=== PATIENT | male | born 1950 ===

== ENCOUNTER 2022-03-05 08:34 | Emergency (ER) | payer OTHER | END 2022-03-05 09:44 | disposition home or self-care (01) | LOC: EC 08:34 | DX: K42.9 Umbilical hernia without obstruction or gangrene (principal) | CPT/HCPCS: 99283 ==

== ENCOUNTER 2022-07-04 18:02 | Inpatient (IN) | payer MEDICARE ==
[2022-07-04 19:52] LABS: Basophils # (A) 0.1 k/uL (0-0.2); Basophils % (A) 0 %; Eosinophils # (A) 0.1 k/uL (0-0.7); Eosinophils % (A) 1 %; HCT 46.3 % (39.0-53.0); HGB 14.6 gm/dL (13.0-17.5); Lymphocytes # (A) 0.9 k/uL (1.0-4.8); Lymphocytes % (A) 8 %; MCH 31.1 pg (25.0-35.0); MCHC 31.6 g/dL (31.0-37.0); MCV 98.5 fL (80.0-100.0); Mean Platelet Volume 8.6; Monocytes # (A) 0.8 k/uL (0-1.0); Monocytes % (A) 7 %; Neutrophils # (A) 9.9 k/uL (1.3-7.7); Neutrophils % (A) 82 %; Platelet Count 161 k/uL (150-450); RDW 14.7 % (11.5-15.5)
[2022-07-04 20:13] LABS: ALT 21 U/L (4-49); AST 37 U/L (17-59); African American GFR (CKD) >90 (>60 ml/min/1.73 sqM); Albumin 2.9 g/dL (3.5-5.0); Alkaline Phosphatase 134 U/L (38-126); Anion Gap 11 mmol/L; Blood Urea Nitrogen 13 mg/dL (9-20); Carbon Dioxide 21 mmol/L (22-30); Chloride 99 mmol/L (98-107); Glucose 119 mg/dL (74-99); Non-African American GFR(CKD) >90 (>60 ml/min/1.73 sqM); Potassium 3.7 mmol/L (3.5-5.1); Sodium 131 mmol/L (137-145); Total Bilirubin 4.1 mg/dL (0.2-1.3); Total Protein 6.7 g/dL (6.3-8.2)
[2022-07-04] MEDS ORDERED: SODIUM CHLORIDE 0.9% 1,000 ML IV STA (23:52)
--- NOTE | 2022-07-04 23:55 | ED ---
Recheck HPI - General Chief Complaint: Extremity Problem,Nontraumatic Stated Complaint: liver Time Seen by Provider: 07/04/22 21:56 Source: patient, RN notes reviewed, old records reviewed Mode of arrival: wheelchair Limitations: no limitations - History of Present Illness Initial Comments: This is a 71-year-old male to the emergency department for evaluation. Patient is mildly poor strain secondary to difficulty hearing. With significant lower extremity swelling edema and weeping. Patient does have some significant liver disease. He has no shortness of breath but does complain of a diminished appetite as well as significant weakness, abdominal pain. MD Complaint: abnormal lab, other (Significant ascites) -: unknown Returns Today for: Called Because of Abnormal Lab/Test, persistent/worsening pain related to initial visit Symptoms Since Prior Visit: worsening swelling Context: planned re-check Associated Symptoms: abdominal pain Treatments Prior to Arrival: other (0) - Related Data Allergies Allergy/AdvReac Type Severity Reaction Status Date / Time No Known Allergies Allergy Verified 07/04/22 19:00 Review of Systems ROS Statement: Those systems with pertinent positive or pertinent negative responses have been documented in the HPI. ROS Other: All systems not noted in ROS Statement are negative. Past Medical History Past Medical History: Liver Disease Additional Past Medical History / Comment(s): liver failure, encephalitis History of Any Multi-Drug Resistant Organisms: None Reported Past Surgical History: Orthopedic Surgery Additional Past Surgical History / Comment(s): broke both legs when he was younger Past Psychological History: No Psychological Hx Reported Smoking Status: Current every day smoker Past Alcohol Use History: Heavy Past Drug Use History: Marijuana General Exam Limitations: no limitations General appearance: alert, in no apparent distress, lethargic Head exam: Present: atraumatic, normocephalic, normal inspection Eye exam: Present: normal appearance, PERRL, EOMI. Absent: scleral icterus, conjunctival injection, periorbital swelling ENT exam: Present: normal exam, mucous membranes moist Neck exam: Present: normal inspection. Absent: tenderness, meningismus, lymphadenopathy Respiratory exam: Present: normal lung sounds bilaterally. Absent: respiratory distress, wheezes, rales, rhonchi, stridor Cardiovascular Exam: Present: regular rate, normal rhythm, normal heart sounds. Absent: systolic murmur, diastolic murmur, rubs, gallop, clicks GI/Abdominal exam: Present: soft, normal bowel sounds. Absent: distended, tenderness, guarding, rebound, rigid Extremities exam: Present: full ROM, other (Significant bilateral lower extremity swelling). Absent: tenderness, pedal edema, joint swelling, calf tenderness Back exam: Present: normal inspection Neurological exam: Present: alert, oriented X3, CN II-XII intact Psychiatric exam: Present: normal affect, normal mood Skin exam: Present: warm, dry, intact, normal color. Absent: rash Course Vital Signs 07/04/22 18:56 Temperature 97.8 F Pulse Rate 120 H Respiratory 18 Rate Blood Pressure 109/77 O2 Sat by Pulse 99 Oximetry - Reevaluation(s) Reevaluation #1: 07/05/22 00:28 Medical record is reviewed Reevaluation #2: 07/05/22 00:28 Patient informed results and questions are answered Reevaluation #3: 07/05/22 00:28 Patient has no change here in the ER - Consultations Consultation #1: Spoke with [facility] we'll admit this patient Medical Decision Making - Medical Decision Making 71 male DF for evaluation. Patient has significant lower extremity edema secondary to new ascites and liver failure. Patient will need significant diuresis and paracentesis. 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 - Lab Data Result diagrams: 07/04/22 19:46 07/04/22 19:46 Lab Results 07/04/22 07/04/22 Range/Units 19:46 19:46 WBC 12.0 H (3.8-10.6) k/uL RBC 4.70 (4.30-5.90) m/uL Hgb 14.6 (13.0-17.5) gm/dL Hct 46.3 (39.0-53.0) % MCV 98.5 (80.0-100.0) fL MCH 31.1 (25.0-35.0) pg MCHC 31.6 (31.0-37.0) g/dL RDW 14.7 (11.5-15.5) % Plt Count 161 (150-450) k/uL MPV 8.6 Neutrophils % 82 % Lymphocytes % 8 % Monocytes % 7 % Eosinophils % 1 % Basophils % 0 % Neutrophils # 9.9 H (1.3-7.7) k/uL Lymphocytes # 0.9 L (1.0-4.8) k/uL Monocytes # 0.8 (0-1.0) k/uL Eosinophils # 0.1 (0-0.7) k/uL Basophils # 0.1 (0-0.2) k/uL Sodium 131 L (137-145) mmol/L Potassium 3.7 (3.5-5.1) mmol/L Chloride 99 (98-107) mmol/L Carbon Dioxide 21 L (22-30) mmol/L Anion Gap 11 mmol/L BUN 13 (9-20) mg/dL Creatinine 0.80 (0.66-1.25) mg/dL Est GFR (CKD-EPI)AfAm >90 (>60 ml/min/1.73 sqM) Est GFR (CKD-EPI)NonAf >90 (>60 ml/min/1.73 sqM) Glucose 119 H (74-99) mg/dL Calcium 9.0 (8.4-10.2) mg/dL Total Bilirubin 4.1 H (0.2-1.3) mg/dL AST 37 (17-59) U/L ALT 21 (4-49) U/L Alkaline Phosphatase 134 H (38-126) U/L Total Protein 6.7 (6.3-8.2) g/dL Albumin 2.9 L (3.5-5.0) g/dL Disposition Clinical Impression: Ascites of liver, Liver cirrhosis, Bilateral lower extremity edema Disposition: ADMITTED IP TO THIS HOSP Condition: Fair Is patient prescribed a controlled substance at d/c from ED?: No Referrals: None,Stated [Primary Care Provider] - 1-2 days Time of Disposition: 00:30
[2022-07-05] MEDS ORDERED: LORazepam 2 MG/ML INJ IV PRN ×3 (00:23)
[2022-07-05] MEDS ORDERED: THIAMINE 100 MG/ML 2 ML VIAL IM STA (00:23)
[2022-07-05 00:53] LABS: Magnesium 2.1 mg/dL (1.6-2.3); Phosphorus 3.3 mg/dL (2.5-4.5)
[2022-07-05 01:06] LABS: INR 1.4 (<1.2); Partial Thromboplastin Time 28.8 sec (22.0-30.0); Prothrombin Time 14.1 sec (9.0-12.0)
[2022-07-05] MEDS ORDERED: NALOXONE 0.4 MG/ML 1 ML VIAL IV PRN (02:12)
[2022-07-05] MEDS ORDERED: ONDANSETRON 4 MG/2 ML VIAL IVP PRN (02:12)
[2022-07-05] MEDS ORDERED: MORPHINE SULFATE 4 MG/ML SYRINGE IV PRN (02:12)
--- NOTE | 2022-07-05 05:51 | P.HPIM ---
History of Present Illness H&P Date: 07/05/22 Chief Complaint: Peripheral edema abdominal distention 71-year-old male with no known significant past medical history Patient is hard of hearing. However he reports that he has no medical concerns or complaints at this time and that his daughter for symptomatic come to the hospital for evaluation. Patient also came to the ED few days ago and his daughter where she reported that patient is having significant edema in his legs and swelling of his abdomen and wanted him to get checked at that time blood work done CT imaging of the abdomen showed massive ascites along with liver cirrhosis. Patient was advised to get admitted for further workup and tapping of his abdomen to help relieve his symptoms however he declined any care at that time and elected to be discha rged from the ED and to follow-up with Drs. agarwal. Seems like his daughter was concerned about the worsening edema of his legs and worsening abdominal distention probably there is a component of difficulty breathing. Daughter also reported some generalized fatigue and weakness and decreased appetite for which she brought him back to the hospital for evaluation Again patient has no complaints he denies any symptoms he denies any chest pain or trouble breathing denies any GI bleeding denies any IV drug abuse or any history of hepatitis denies any nausea vomiting denies any chest pain or trouble breathing denies any fevers or chills. Seems like patient has very poor insight of his overall clinical picture Blood work in the ED showed elevated bilirubin slightly elevated PT/INR, low a lbumin Review of Systems Unreliable patient denies everything Pertinent positives as noted in HPI. All other systems were reviewed and are negative Past Medical History Past Medical History: Liver Disease Additional Past Medical History / Comment(s): liver failure, encephalitis History of Any Multi-Drug Resistant Organisms: None Reported Past Surgical History: Orthopedic Surgery Additional Past Surgical History / Comment(s): broke both legs when he was younger Past Psychological History: No Psychological Hx Reported Smoking Status: Current every day smoker Past Alcohol Use History: Heavy Past Drug Use History: Marijuana - Past Family History Family Additional Family Medical History / Comment(s): Denies any heart disease or cancer in the family Medications and Allergies Allergies Allergy/AdvReac Type Severity Reaction Status Date / Time No Known Allergies Allergy Verified 07/04/22 19:00 Physical Exam Vitals: Vital Signs Temp Pulse Resp BP Pulse Ox 07/04/22 18:56 97.8 F 120 H 18 109/77 99 Intake and Output 07/04/22 07/04/22 07/05/22 14:59 22:59 06:59 Other: Weight 45.359 kg Constitutional: No acute distress, cachectic Eyes: Jaundice sclerae, moist conjunctiva, Pupils equal round reactive to light ENMT: NC/AT Oropharynx clear, no erythema, or exudates Neck: Supple, , no masses, or JVD No carotid bruits No thyromegaly Lungs: Clear to auscultation Clear to percussion Normal respiratory effort, no accessory muscle use Cardiovascular: Heart regular in rate and rhythm, No murmurs, gallops, or rubs +3 bilateral peripheral edema Abdominal: Distended abdomen tense to palpation no tenderness Nontender, no guarding, rebound or rigidity Abdomen moving with respiration Difficult to assess organs due to significant abdominal distention and tenderness to palpation Umbilical hernia nontender Skin: Normal temperature, tone, texture, turgor Extremities: No digital cyanosis No clubbing Pedal pulses unable to detect due to significant pedal edema capillary refill is immediate Radial pulses intact and symmetrical No calf tenderness Psychiatric: Alert and oriented to person, place Neuro Muscles Strength 4/5 in bilateral upper extremities 3/5 in bilateral lower extremities Sensation to light touch grossly present throughout Cranial nerves II-XII grossly intact Lymphatics: no palpable cervical or supraclavicular , or inguinal lymph nodes Results CBC & Chem 7: 07/04/22 19:46 07/04/22 19:46 Labs: Abnormal Lab Results - Last 24 Hours (Table) 07/04/22 07/04/22 07/05/22 Range/Units 19:46 19:46 00:14 WBC 12.0 H (3.8-10.6) k/uL Neutrophils # 9.9 H (1.3-7.7) k/uL Lymphocytes # 0.9 L (1.0-4.8) k/uL PT 14.1 H (9.0-12.0) sec INR 1.4 H (<1.2) Sodium 131 L (137-145) mmol/L Carbon Dioxide 21 L (22-30) mmol/L Glucose 119 H (74-99) mg/dL Total Bilirubin 4.1 H (0.2-1.3) mg/dL Alkaline Phosphatase 134 H (38-126) U/L Albumin 2.9 L (3.5-5.0) g/dL Assessment and Plan Assessment: Suspected advanced liver disease with liver cirrhosis, unknown underlying cause of this time Significant abdominal ascites GI consultation Check hepatitis panel Interventional radiology for paracentesis diagnostic and therapeutic Lasix IV twice a day Supportive care Denies any alcohol use or illicit drug use Hyponatremia Secondary to fluid retention from liver cirrhosis Monitor sodium Continue with Lasix IV twice a day DVT prophylaxis heparin subcu 3 times a day Full code
[2022-07-05] MEDS: HEPARIN SODIUM,PORCINE/PF 5,000 UNIT/0.5 ML SYRINGE SQ SCH ×2 (07:18→16:52)
[2022-07-05] MEDS: SODIUM CHLORIDE 0.9% 1,000 ML IV SCH (08:20)
[2022-07-05] MEDS: FUROSEMIDE 10 MG/ML 4 ML VIAL IV SCH ×2 (08:25→20:23)
[2022-07-05] MEDS ORDERED: SPIRONOLACTONE 25 MG TAB PO SCH (09:00)
--- NOTE | 2022-07-05 12:14 | P.CONS ---
History of Present Illness - Reason for Consult Consult date: 07/05/22 Cirrhosis of the liver Requesting physician: Nazario Rico - Chief Complaint Ascites, lower extremity edema - History of Present Illness This 71-year-old white male who is extremely hard of hearing that was brought in by his daughter to the emergency department for evaluation of lower extremity swelling and abdominal swelling. Apparently the patient was brought into the emergency department on 06/30/[address] of the abdomen and pelvis with contrast that showed massive abdominal ascites. Large umbilical hernia containing ascites fluid. Irregular small liver consistent with cirrhosis. Bilateral lower lobe pulmonary infiltrates and atelectasis more on the right. Small right pleural effusion. Apparently at that time the patient decided he did not want treatment and decided to leave without treatment according to the ER note from yesterday. Gastroenterology was consulted for cirrhosis of the liver, ascites. Patient states he has drank for many years 3-4 beers a day. Last drink was couple months ago according to the patient. He denies any previous knowledge of cirrhosis of the liver or underlying liver disease. States he is been swollen in the lower extremities as well as abdominal distention for the last 2-3 months. He states he does not have a family physician and does not follow with anyone on a regular basis. Denies any medi torrey history. Patient states he does have some shortness of breath, no chest pain. Abdominal discomfort due to distention. No previous paracentesis. Bilateral lower extremity edema with weeping legs but she states are uncomfortable. Current labs: WBC 12 hemoglobin 14 hematocrit 46 platelet count 161,000 INR 1.4 sodium 131 potassium 3.7 BUN 13 creatinine 0.8 total bilirubin 4.1 AST 37 ALT 27 alkaline phosphatase 134 ammonia less than 9 Review of Systems REVIEW OF SYSTEMS: CARDIOPULMONARY: No chest pain or shortness of breath. Bilateral lower extremity edema, weeping. Gastrointestinal: Abdominal distention, discomfort. Umbilical hernia. No nausea or vomiting. No hematemesis, coffee-ground emesis. No rectal bleeding, or melena. GENITOURINARY: No dysuria or hematuria. MUSCULOSKELETAL: Reports normal range of motion. SKIN: No rashes. No jaundice. ENDOCRINE: No chills, fevers. No excessive weight gain or loss. No polydipsia or polyuria. PSYCHIATRIC: Unremarkable. NEUROLOGY: No change in mental status. Denies dizziness, headache. ENT: Vision unremarkable. CONSTITUTIONAL: No recent weight loss. No fever, chills, night sweats. Past Medical History Past Medical History: Liver Disease Additional Past Medical History / Comment(s): liver failure, encephalitis History of Any Multi-Drug Resistant Organisms: None Reported Past Surgical History: Orthopedic Surgery Additional Past Surgical History / Comment(s): broke both legs when he was younger Past Psychological History: No Psychological Hx Reported Smoking Status: Current every day smoker Past Alcohol Use History: Heavy Past Drug Use History: Marijuana - Past Family History Family Additional Family Medical History / Comment(s): Denies any heart disease or cancer in the family Father Family Medical History: No Reported History Additional Family Medical History / Comment(s): Pt states father was healthy Mother Family Medical History: Dementia Medications and Allergies Home Medications Medication Instructions Recorded Confirmed Type No Known Home Medications 07/05/22 07/05/22 History Allergies Allergy/AdvReac Type Severity Reaction Status Date / Time No Known Allergies Allergy Verified 07/05/22 06:53 Physical Exam Vitals: Vital Signs Temp Pulse Resp BP Pulse Ox 07/05/22 06:57 89 16 109/68 95 07/05/22 04:25 94 17 116/74 96 07/04/22 18:56 97.8 F 120 H 18 109/77 99 Intake and Output 07/04/22 07/05/22 07/05/22 22:59 06:59 14:59 Other: Weight 45.359 kg General appearance: The patient is alert, oriented, appears in no acute distress. Extremely hard of hearing. HET: Head is normocephalic and atraumatic. Conjunctiva pink. Sclera anicteric. Neck: Supple without lymphadenopathy. Trachea midline. Heart: S1 S2. Regular rate and rhythm. Lungs: Clear to auscultation. Abdomen: Soft, diffuse tenderness, significant distention with ascites, umbilical hernia present, positive bowel sounds. No guarding or rigidity. Skin: No rashes. No jaundice. Extremities: Normal skin color and turgor. +2-3 bilateral lower extremity edema, with weeping. Neurological: No focal deficits. Alert and oriented x3. Results CBC & Chem 7: 07/04/22 19:46 07/04/22 19:46 Labs: Abnormal Lab Results - Last 24 Hours (Table) 07/04/22 07/04/2222 Range/Units 19:46 19:46 00:14 WBC 12.0 H (3.8-10.6) k/uL Neutrophils # 9.9 H (1.3-7.7) k/uL Lymphocytes # 0.9 L (1.0-4.8) k/uL PT 14.1 H (9.0-12.0) sec INR 1.4 H (<1.2) Sodium 131 L (137-145) mmol/L Carbon Dioxide 21 L (22-30) mmol/L Glucose 119 H (74-99) mg/dL Total Bilirubin 4.1 H (0.2-1.3) mg/dL Alkaline Phosphatase 134 H (38-126) U/L Albumin 2.9 L (3.5-5.0) g/dL CT scan - abdomen: report reviewed (06/30/[address] of the abdomen and pelvis with contrast that showed massive abdominal ascites. Large umbilical hernia containing ascites fluid. Irregular small liver consistent with cirrhosis. Bilateral lower lobe pulmonary infiltrates and atelectasis more on the right. Small right pleur) Assessment and Plan (1) Decompensation of cirrhosis of liver Narrative/Plan: 71-year-old male who doesn't follow PCP who presented to emergency department couple days ago and left without recommended treatment. At that time he had a CT of the abdomen and pelvis that showed massive amount of ascites. According to the emergency room notes from yesterday patient was recommended to have paracentesis however he declined left. Yesterday his daughter brought him back, with continued lower extremity swelling and abdominal swelling and distention. Patient has a history of long-term alcohol use and drinks 3-4 beers a day. Patient states he quit drinking 2-3 months ago. He does not follow with the PCP and denies any previous medical history. Denies any previous knowledge of liver disease or cirrhosis of the liver. Mild score calculated at 21 with a 19.6% mortality rate in the next 3 months. Recommend paracentesis therapeutic and diagnostic. Continue diuretics. Current Visit: Yes Status: Acute Code(s): K72.90 - HEPATIC FAILURE, UNSPECIFIED WITHOUT COMA; K74.60 - UNSPECIFIED CIRRHOSIS OF LIVER SNOMED Cod e(s): 342119253 (2) Ascites of liver Current Visit: Yes Status: Acute Code(s): R18.8 - OTHER ASCITES SNOMED Code(s): 488314753 (3) Bilateral lower extremity edema Current Visit: Yes Status: Acute Code(s): R60.0 - LOCALIZED EDEMA SNOMED Code(s): 467018001 (4) Umbilical hernia Current Visit: No Status: Acute Code(s): K42.9 - UMBILICAL HERNIA WITHOUT OBSTRUCTION OR GANGRENE SNOMED Code(s): 721114331 Plan: 1. Continue symptomatic and supportive care 2. Low-sodium diet 3. Continue IV Lasix, increase Aldactone to 100 mg daily 4. Agree with paracentesis with fluid studies and cytology 5. Recommend elevation lower extremities, wrapped with Hector wrap 6. Patient does have a 19.6 mortality rate in the next 3 months according to his meld score, primary medicine team has consulted with palliative care. Thank you for this consultation, we will continue to follow. Dr. Jose C Villegas I agree with the dictator's note, documented as a scribe by Tamraa Ng.
[2022-07-05 12:29] LABS: Hepatitis A Antibody IgM Nonreactive (Nonreactive); Hepatitis B Core IgM Nonreactive (Nonreactive); Hepatitis B Surface Antigen Nonreactive (Nonreactive); Hepatitis C IgG Antibody Reactive (Nonreactive)
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
[2022-07-05] MEDS ORDERED: ACETAMINOPHEN TAB 325 MG TAB PO PRN (14:17)
[2022-07-05] MEDS ORDERED: KETOROLAC 15 MG/ML 1 ML VIAL IVP PRN (14:18)
[2022-07-05] MEDS: ALBUMIN HUMAN 25% 50 ML in EMPTY BAG 1 BAG IVPB SCH ×6 (16:43→18:29)
[2022-07-05] MEDS: THIAMINE 100 MG TAB PO SCH (17:18)
[2022-07-05 23:35] LABS: Appearance,BF Clear
[2022-07-06] MEDS: HEPARIN SODIUM,PORCINE/PF 5,000 UNIT/0.5 ML SYRINGE SQ SCH ×3 (00:04→15:31)
[2022-07-06] MEDS: SODIUM CHLORIDE 0.9% 1,000 ML IV SCH (00:04)
[2022-07-06 00:41] LABS: T. Protein, Body Fluid Source Ascites; Total Protein, Body Fluid 629 mg/dL
[2022-07-06 00:56] LABS: Albumin, Fluid Source Ascites
--- NOTE | 2022-07-06 07:48 | US ---
EXAMINATION TYPE: US paracentesis abd w/image DATE OF EXAM: 07/05/2022 COMPARISON: NONE HISTORY: Ascites. PROCEDURE: Maximal barrier technique was utilized. The skin overlying a suitable pocket of fluid was localized with ultrasound and the overlying skin was prepped and draped. Ultrasound was utilized with sterile technique. Lidocaine was used for local anesthesia and a skin bernard made with a scalpel. Catheter was advanced under direct ultrasound guidance into a suitable pocket of fluid and approximately 12.3 lite rs of ascites fluid were removed. Catheter was withdrawn and hemostasis achieved. There is no immed iate complication; the patient is discharged in stable condition. IMPRESSION: STATUS POST ULTRASOUND GUIDED PARACENTESIS FOR PALLIATION OF ASCITES. THIS PROCEDURE WA S PERFORMED BY THE UNDERSIGNED.
[2022-07-06] MEDS: THIAMINE 100 MG TAB PO SCH ×2 (09:19→17:09)
[2022-07-06] MEDS: FUROSEMIDE 10 MG/ML 4 ML VIAL IV SCH ×2 (09:20→22:17)
[2022-07-06 09:28] LABS: ALT 15 U/L (4-49); AST 41 U/L (17-59); African American GFR (CKD) >90 (>60 ml/min/1.73 sqM); Albumin 2.9 g/dL (3.5-5.0); Albumin/Globulin Ratio 1.1; Alkaline Phosphatase 131 U/L (38-126); Anion Gap 11 mmol/L; Bilirubin,Unconjugated 1.6 mg/dL (0.0-1.1); Blood Urea Nitrogen 21 mg/dL (9-20); Calcium 8.7 mg/dL (8.4-10.2); Carbon Dioxide 21 mmol/L (22-30); Chloride 101 mmol/L (98-107); Globulin 2.7 g/dL; Glucose 114 mg/dL (74-99); Magnesium 1.9 mg/dL (1.6-2.3); Non-African American GFR(CKD) >90 (>60 ml/min/1.73 sqM); Phosphorus 2.5 mg/dL (2.5-4.5); Sodium 133 mmol/L (137-145); Total Bilirubin 2.6 mg/dL (0.2-1.3); Total Protein 5.6 g/dL (6.3-8.2)
[2022-07-06 09:41] LABS: Potassium 3.4 mmol/L (3.5-5.1)
[2022-07-06 10:16] LABS: Basophils % (A) 0 %; Eosinophils % (A) 0 %; HCT 42.1 % (39.0-53.0); HGB 13.8 gm/dL (13.0-17.5); Lymphocytes # (A) 0.6 k/uL (1.0-4.8); Lymphocytes % (A) 6 %; MCH 32.5 pg (25.0-35.0); MCHC 32.7 g/dL (31.0-37.0); MCV 99.3 fL (80.0-100.0); Macrocytosis Slight; Mean Platelet Volume 9.4; Monocytes # (A) 0.6 k/uL (0-1.0); Monocytes % (A) 6 %; Neutrophils # (A) 9.2 k/uL (1.3-7.7); Neutrophils % (A) 87 %; Platelet Count 105 k/uL (150-450); RBC 4.24 m/uL (4.30-5.90); WBC 10.5 k/uL (3.8-10.6)
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
[2022-07-06] MEDS: SPIRONOLACTONE 25 MG TAB PO SCH (13:39)
--- NOTE | 2022-07-06 13:40 | P.PN ---
Subjective Progress Note Date: 07/06/22 Patient doing well following his paracentesis. Workup continues for liver cirrhosis, hepatitis C IgG was positive, quantitative RNA for hepatitis C is pending, qualitative RNA is positive. Patient is otherwise doing well, has no complaints at this time. Gen: awake, alert, cachectic HEENT: normocephalic, atraumatic, good hearing acuity, moist mucous membranes Resp: good air exchange, breathing comfortably with no accessory muscle use CVS: good distal perfusion x 4, GI: soft, distended, positive ascites : no SPT, no CVAT, mendoza catheter not present MSK: no pitting edema, no clubbing Neuro: non-focal, moving all extremities Psych: cooperative, euthymic mood Assessment/plan: Decompensated Liver Cirrhosis Abdominal Ascites Hepatitis C -GI consultation -Check hepatitis panel -Interventional radiology for paracentesis diagnostic and therapeutic -Lasix IV twice a day -Supportive care -Denies any alcohol use or illicit drug use -Add aldactone -MELD score 21 = 19.6% 3 month mortality Hyponatremia Monitor sodium Continue with Lasix IV twice a day, added aldactone DVT prophylaxis heparin subcu 3 times a day Full code Objective - Vital Signs Vital signs: Vital Signs Temp 97.7 F 07/06/22 13:16 Pulse 107 H 07/06/22 13:16 Resp 18 07/06/22 13:16 BP 94/60 07/06/22 13:16 Pulse Ox 92 L 07/06/22 13:16 FiO2 Intake & Output 07/05/22 07/06/22 07/06/22 18:59 06:59 18:59 Intake Total 300 Output Total 58134 300 Balance -41415 -300 Weight 66.5 kg Intake: Intake, IV Titration 300 Amount Albumin Human 25% 50 ml 100 In Empty Bag 1 bag @ 200 mls/hr IVPB Q15M CT Rx#: [id number] Albumin Human 25% 50 ml 200 In Empty Bag 1 bag @ 200 mls/hr IVPB Q15M CT Rx#: [id number] Output: Urine 300 Other [id number] Other: Voiding Method Urinal Urinal # Bowel Movements 1 - Labs CBC & Chem 7: 07/06/22 08:54 07/06/22 08:54 Labs: Abnormal Lab Results - Last 24 Hours (Table) 07/05/22 07/06/22 07/06/22 Range/Units 18:17 08:54 08:54 RBC 4.24 L (4.30-5.90) m/uL Plt Count 105 L (150-450) k/uL Neutrophils # 9.2 H (1.3-7.7) k/uL Lymphocytes # 0.6 L (1.0-4.8) k/uL Sodium 133 L (137-145) mmol/L Potassium 3.4 L (3.5-5.1) mmol/L Carbon Dioxide 21 L (22-30) mmol/L BUN 21 H (9-20) mg/dL Glucose 114 H (74-99) mg/dL Total Bilirubin 2.6 H (0.2-1.3) mg/dL Unconjugated Bilirubin 1.6 H (0.0-1.1) mg/dL Alkaline Phosphatase 131 H (38-126) U/L Total Protein 5.6 L (6.3-8.2) g/dL Albumin 2.9 L (3.5-5.0) g/dL HCV RNA Qual (PCR) DETECTED A (Not detected) Microbiology - Last 24 Hours (Table) 07/05/22 13:50 Anaerobic Culture - Preliminary Ascites Fluid 07/05/22 13:50 Body Fluid Culture - Preliminary Ascites Fluid
[2022-07-06 13:52] VITALS: BMI 23.6
--- NOTE | 2022-07-06 14:32 | P.PN ---
Subjective Progress Note Date: 07/06/22 Principal diagnosis: Cirrhosis of the liver This 71-year-old white male who is extremely hard of hearing that was brought in by his daughter to the emergency department for evaluation of lower extremity swelling and abdominal swelling. Apparently the patient was brought into the emergency department on 06/30/[address] of the abdomen and pelvis with contrast that showed massive abdominal ascites. Large umbilical hernia containing ascites fluid. Irregular small liver consistent with cirrhosis. Bilateral lower lobe pulmonary infiltrates and atelectasis more on the right. Small right pleural effusion. Apparently at that time the patient decided he did not want treatment and decided to leave without treatment according to the ER note from yesterday. Gastroenterology was consulted for cirrhosis of the liver, ascites. Patient states he has drank for many years 3-4 beers a day. Last drink was couple months ago according to the patient. He denies any prev ious knowledge of cirrhosis of the liver or underlying liver disease. States he is been swollen in the lower extremities as well as abdominal distention for the last 2-3 months. He states he does not have a family physician and does not follow with anyone on a regular basis. Denies any medical history. Patient states he does have some shortness of breath, no chest pain. Abdominal discomfort due to distention. No previous paracentesis. Bilateral lower extremity edema with weeping legs but she states are uncomfortable. 07/06/2022: Patient seen and examined is a follow-up for alcoholic cirrhosis of the liver, decompensated with ascites. Patient with a meld score of 21 with a 19.6% mortality rate. 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 The family wishes to take the patient home for palliative care, and we'll discuss further hospice intervention as patient's disease regresses. They have made patient a no code. This morning he underwent paracentesis with pulp 0.3 L removed. He states that abdominal distention and discomfort has improved. Patient acute hepatitis panel did come back reactive for hepatitis C antibody. WBC 10.5 hemoglobin 13.8, hematocrit 42 platelet count 105,000 sodium 133 potassium 3.4 total bilirubin 2.6 AST 41 ALT 15 alkaline phosphatase 131 Objective - Vital Signs Vital signs: Vital Signs Temp 97.6 F 07/05/22 18:55 Pulse 97 07/06/22 10:33 Resp 18 07/05/22 18:55 BP 103/73 07/06/22 08:06 Pulse Ox 100 07/06/22 10:33 FiO2 Intake & Output 07/05/22 07/06/22 07/06/22 18:59 06:59 18:59 Intake Total 300 Output Total 75051 300 Balance -20452 -300 Weight 66.5 kg Intake: Intake, IV Titration 300 Amount Albumin Human 25% 50 ml 100 In Empty Bag 1 bag @ 200 mls/hr IVPB Q15M CT Rx#: [id number] Albumin Human 25% 50 ml 200 In Empty Bag 1 bag @ 200 mls/hr IVPB Q15M CT Rx#: [id number] Output: Urine 300 Other 52901 Other: Voiding Method Urinal # Bowel Movements 1 - Exam General appearance: The patient is alert, oriented, appears in no acute distress. Patient is extremely hard of hearing. HET: Head is normocephalic and atraumatic. Conjunctiva pink. Sclera anicteric. Neck: Supple without lymphadenopathy. Abdomen: Soft, nontender, nondistended, umbilical hernia improved, easily reducible. Extremities: Normal skin color and turgor. +2 bilateral lower extremity edema. Skin: No rashes, no jaundice Neurological: No focal deficits. Alert and oriented x2. - Labs CBC & Chem 7: 07/06/22 08:54 07/06/22 08:54 Labs: Abnormal Lab Results - Last 24 Hours (Table) 07/05/22 07/06/22 07/06/22 Range/Units 07:47 08:54 08:54 RBC 4.24 L (4.30-5.90) m/uL Plt Count 105 L (150-450) k/uL Neutrophils # 9.2 H (1.3-7.7) k/uL Lymphocytes # 0.6 L (1.0-4.8) k/uL Sodium 133 L (137-145) mmol/L Potassium 3.4 L (3.5-5.1) mmol/L Carbon Dioxide 21 L (22-30) mmol/L BUN 21 H (9-20) mg/dL Glucose 114 H (74-99) mg/dL Total Bilirubin 2.6 H (0.2-1.3) mg/dL Unconjugated Bilirubin 1.6 H (0.0-1.1) mg/dL Alkaline Phosphatase 131 H (38-126) U/L Total Protein 5.6 L (6.3-8.2) g/dL Albumin 2.9 L (3.5-5.0) g/dL Hep C IgG Ab Reactive A (Nonreactive) Microbiology - Last 24 Hours (Table) 07/05/22 13:50 Anaerobic Culture - Preliminary Ascites Fluid 07/05/22 13:50 Body Fluid Culture - Preliminary Ascites Fluid Assessment and Plan (1) Decompensation of cirrhosis of liver Narrative/Plan: 71-year-old male who doesn't follow PCP who presented to emergency department couple days ago and left without recommended treatment. At that time he had a CT of the abdomen and pelvis that showed massive amount of ascites. According to the emergency room notes from yesterday patient was recommended to have paracentesis however he declined left. Yesterday his daughter brought him back, with continued lower extremity swelling and abdominal swelling and distention. Patient has a history of long-term alcohol use and drinks 3-4 beers a day. Patient states he quit drinking 2-3 months ago. He does not follow with the PCP and denies any previous medical history. Denies any previous knowledge of liver disease or cirrhosis of the liver. Mild score calculated at 21 with a 19.6% mortality rate in the next 3 months. Recommend paracentesis therapeutic and diagnostic. Continue diuretics. Patient's acute hepatitis panel came back reactive for hepatitis C antibody. Qualitative and genotype ordered. However patient at this time is deciding to g o with palliative care and possible hospice care outpatient. Otherwise patient to follow-up out patient with Dr. Villegas for hepatitis treatment. Current Visit: Yes Status: Acute Code(s): K72.90 - HEPATIC FAILURE, UNSPECIF IED WITHOUT COMA; K74.60 - UNSPECIFIED CIRRHOSIS OF LIVER SNOMED Code(s): 778802168 (2) Ascites of liver Narrative/Plan: The patient underwent paracentesis with 12.3 L removed. Patient was given albumin. Fluid studies consistent with underlying liver disease Current Visit: Yes Status: Acute Code(s): R18.8 - OTHER ASCITES SNOMED Cod e(s): 441553157 (3) Bilateral lower extremity edema Current Visit: Yes Status: Acute Code(s): R60.0 - LOCALIZED EDEMA SNOMED Code(s): 197791233 (4) Umbilical hernia Current Visit: No Status: Acute Code(s): K42.9 - UMBILICAL HERNIA WITHOUT OBSTRUCTION OR GANGRENE SNOMED Code(s): 724068023 Plan: 1. Continue symptomatic and supportive care 2. Low-sodium diet 3. Continue IV Lasix, Aldactone to 100 mg daily 4. Replace potassium 5. Recommend elevation lower extremities, wrapped with Hector wrap 6. Patient does have a 19.6 mortality rate in the next 3 months according to his meld score, primary medicine team has consulted with palliative care. Patient sister Arlette called and discussed patient's condition including plan of care. Discussed with her recommendation follow-up with gastroenterology to adrián levine outpatient therapeutic paracentesis. Also discussed with patient's sister hepatitis C status and possible treatment. She does believe her brother would not want treatment but this will be discussed further as an outpatient. Thank you for allowing us to participate in the care of the patient, the GI service will sign off, gastroenterology will not be available at the hospital this weekend and through next week. If further evaluation by gastroenterology is required the patient will need transfer as per the primary team's discretion. Dr. Jose C Villegas I agree with the dictator's note, documented as a scribe by Tamara Ng.
[2022-07-06 19:29] VITALS: RESP 16
[2022-07-06] MEDS ORDERED: SODIUM CHLORIDE 0.9% 500 ML 250 ML IV ONE (20:55)
[2022-07-06] MEDS ORDERED: DIGOXIN 250 MCG/ML 2 ML AMP IVP ONE (22:09)
[2022-07-07] MEDS: HEPARIN SODIUM,PORCINE/PF 5,000 UNIT/0.5 ML SYRINGE SQ SCH ×2 (01:03→08:17)
[2022-07-07] MEDS ORDERED: SODIUM CHLORIDE 0.9% 500 ML 250 ML IV ONE (01:53)
[2022-07-07] MEDS ORDERED: DILTIAZEM 5 MG/ML 5 ML VIAL IVP STA (01:53)
[2022-07-07] MEDS: SODIUM CHLORIDE 0.9% 1,000 ML IV SCH (04:21)
[2022-07-07 04:30] VITALS: BP 93/65
[2022-07-07] MEDS ORDERED: DIGOXIN 250 MCG/ML 2 ML AMP IVP ONE (04:30)
[2022-07-07 04:40] VITALS: TEMP 97.4
[2022-07-07] MEDS: THIAMINE 100 MG TAB PO SCH (08:16)
[2022-07-07] MEDS: SPIRONOLACTONE 25 MG TAB PO SCH (08:17)
[2022-07-07] MEDS: FUROSEMIDE 10 MG/ML 4 ML VIAL IV SCH (08:43)
[2022-07-07] MEDS ORDERED: DILTIAZEM CD 180 MG CAP.ER.24H PO SCH (09:00)
[2022-07-07 10:26] VITALS: PULSE 89
--- NOTE | 2022-07-07 17:00 | P.DS ---
Providers Date of admission: 07/05/22 02:12 Expected date of discharge: 07/07/22 Attending physician: Pratik Rodriguez MD Consults: 07/05/22 02:12 Consult Physician Routine Consulting Provider: Becky Villegas Consult Reason/Comments: cirrhosis Do you want consulting provider notified?: Yes 07/05/22 08:37 Consult to Palliative Care Routine Consulting Provider: Hollie Barrera Consult Reason/Comments: End stage liver disease Do you want consulting provider notified?: Yes Primary care physician: Stated None Hospital Course: Decompensated Liver Cirrhosis Abdominal Ascites Hepatitis C Hyponatremia Paroxysmal atrial fibrillation with RVR 71-year-old man with end-stage liver disease presented with decompensated liver cirrhosis. He had tense abdominal ascites as well as lower extremity edema with an unknown etiology. Patient was admitted to the hospital for paracentesis as well as workup of liver failure. He was seen by palliative care given his severe end-stage liver disease with a meld score of 21 portending a 19.6% chance of mortality at 3 months. He has family were amenable to receiving outpatient palliative care services. Regarding his liver failure, he had a paracentesis which removed 12.1 L of fluid with S AAG greater than 1.1, total protein less than 2 consistent with cirrhotic portal hypertension as a cause of his ascites, low white blood cell count with no suspicion of spontaneous bacterial peritonitis. Patient's hepatitis serologies returned positive for hepatitis C IgG and qualitative RNA was positive with quantitative RNA pending. Patient also went into atrial fibrillation with rapid ventricular response which was controlled with diltiazem. Patient was also discharged home with instructions to follow-up with infectious disease, primary care, hepatology regarding his issues. He will also be seen by palliative care. His new medications include Lasix, spironolactone, Apixiban, diltiazem. I spent 35 minutes coordinating this complex discharge, discharge date 07/07 Gen: awake, alert, cachectic HEENT: normocephalic, atraumatic, good hearing acuity, moist mucous membranes Resp: good air exchange, breathing comfortably with no accessory muscle use CVS: good distal perfusion x 4, GI: soft, distended, positive ascites : no SPT, no CVAT, mendoza catheter not present MSK: no pitting edema, no clubbing Neuro: non-focal, moving all extremities Psych: cooperative, euthymic mood Patient Condition at Discharge: Fair Plan - Discharge Summary Discharge Rx Participant: No New Discharge Prescriptions: New Spironolactone [Aldactone] 100 mg PO DAILY #120 tab Diltiazem Cd [Cardizem CD] 180 mg PO DAILY #30 cap Apixaban [Eliquis] 5 mg PO BID #60 tab Furosemide [Lasix] 40 mg PO BID #60 tablet Thiamine [Vitamin B-1] 100 mg PO BID-W/MEALS #60 tab Discharge Medication List Apixaban [Eliquis] 5 mg PO BID #60 tab 07/07/22 [Rx] Diltiazem Cd [Cardizem CD] 180 mg PO DAILY #30 cap 07/07/22 [Rx] Furosemide [Lasix] 40 mg PO BID #60 tablet 07/07/22 [Rx] Spironolactone [Aldactone] 100 mg PO DAILY #120 tab 07/07/22 [Rx] Thiamine [Vitamin B-1] 100 mg PO BID-W/MEALS #60 tab 07/07/22 [Rx] Follow up Appointment(s)/Referral(s): Becky Villegas MD [STAFF PHYSICIAN] - 1 Week (offices closed for the weekend, please call Saturday07/09/22 to schedule appointment.) [facility], [NON-STAFF] - 1 Week None,Stated [Primary Care Provider] - 1-2 days (PLEASE CALL YOUR PRIMARY CARE DOCTOR. offices closed for the weekend, please call Saturday07/09/22 to schedule appointment.) Ashley Cole MD [STAFF PHYSICIAN] - 1 Week (Hepatitis C infection. offices closed for the , please call Saturday07/09/22 to schedule appointment.) Patient Instructions/Handouts: A-fib (Atrial Fibrillation) (DC), Cirrhosis (DC), Hepatitis C (DC), Ascites (DC) Discharge Disposition: HOME WITH HOME HEALTH SERVICES
--- NOTE | 2022-07-10 12:49 | CDI ---
Documentation Clarification Form Date: 07/10/22 From: Lara Shipman Admit Date: 07/05/2022 02:12:00 AM Patient Name: Solomon Garcia Visit Number: [id number] Discharge Date: 07/07/2022 12:15:00 PM ATTENTION: The Clinical Documentation Specialists (CDI) and [facility] Coding Staff appreciate your assistance in clarifying documentation. Please respond to the clarification below the line at the bottom and electronically sign. The CDI & [facility] Coding staff will review the response and follow-up if needed. Please note: Queries are made part of the Legal Health Record. If you have any questions, please contact the author of this message via ITS. Dr. Foreign Brar, Malnutrition is documented in your consult and 07/06 PN. Additional clarification regarding the severity of malnutrition is requested. History/Risk Factors: alcoholic cirrhosis of liver with ascites, hyponatremia, portal hypertension, cachexia, chronic hepatic failure, dementia, viral hepatitis C without coma, PAF Clinical Indicators: Decreased appetite "feels full all the time", no recent weight loss, "+protein torrey malnutrition". Total Protein: 5.6 Albumin: 2.9 Current BMI: 23.1 07/06 Assessment: Intake-fair, consumed 25-50%, drank supplement 100% yesterday, no wounds. Decreased appetite with ascites, end-stage liver disease. Ensure Compact BID; Magic Cup 1X daily. Please clarify the type of malnutrition, if known: [ ] Mild Protein-Calorie Malnutrition [ X ] Moderate Protein-Calorie Malnutrition [ ] Severe Protein-Calorie Malnutrition [ ] Malnutrition, unspecified [ ] Other condition, please specify [ ] Unable to Determine MTDD
[2022-07-13 07:34] LABS: HCV Qualitative Result DETECTED (Not detected)
== END 2022-07-07 12:15 | disposition home health service (06) | DRG 433 ==
LOC: EC 18:02 → 5NMEDONC 07-05 02:12
PROVIDERS: ADMIT Internal Medicine; ATTEND Internal Medicine
PROC: 0W9G3ZX Drainage of Peritoneal Cavity, Percutaneous Approach, Diagnostic (ICD-10-PCS; principal; 2022-07-05)
DX: K70.31 Alcoholic cirrhosis of liver with ascites (principal); E44.0 Moderate protein-calorie malnutrition; E87.1 Hypo-osmolality and hyponatremia; K76.6 Portal hypertension; R64 Cachexia; J98.11 Atelectasis; K72.10 Chronic hepatic failure without coma; F03.90 Unspecified dementia, unspecified severity, without behavioral disturbance, psychotic disturbance, mood disturbance, and anxiety; B19.20 Unspecified viral hepatitis C without hepatic coma; I48.0 Paroxysmal atrial fibrillation; Z66 Do not resuscitate; Z51.5 Encounter for palliative care; Z28.310 Unvaccinated for COVID-19; Z68.23 Body mass index [BMI] 23.0-23.9, adult; H91.90 Unspecified hearing loss, unspecified ear; K42.9 Umbilical hernia without obstruction or gangrene; R13.10 Dysphagia, unspecified; R79.1 Abnormal coagulation profile; F17.200 Nicotine dependence, unspecified, uncomplicated; Z86.61 Personal history of infections of the central nervous system
CPT/HCPCS: 36415; 49083; 80053; 80074; 82042; 82140; 82248; 83735; 84100; 84157; 85025; 85610; 85730; 87070; 87075; 87205; 87521; 87522; 87902; 89050; 93005; 94760; 96360; 96361; 99285

== ENCOUNTER 2022-07-15 11:08 | Inpatient (IN) | payer MEDICARE ==
[2022-07-15] MEDS ORDERED: SODIUM CHLORIDE 0.9% 500 ML 500 ML IV STA ×2 (11:23→15:21)
--- NOTE | 2022-07-15 11:58 | XR ---
EXAMINATION TYPE: XR chest 1V portable DATE OF EXAM: 07/15/2022 11:51 AM COMPARISON: None TECHNIQUE: XR chest 1V portable Frontal view of the chest. CLINICAL INDICATION:Male, 71 years old with history of ams; FINDINGS: Lungs/Pleura: No pneumothorax or pleural effusion. Patchy prominent perihilar opacities. Low lung vol umes with elevated right hemidiaphragm. Heart/mediastinum: Cardiomediastinal silhouette is unremarkable. Atherosclerotic calcifications are seen in the aorta. Musculoskeletal: No acute osseous pathology. IMPRESSION: Low lung volumes with patchy prominent perihilar opacities which likely related to level of inspirati on.
--- NOTE | 2022-07-15 12:05 | ED ---
General Adult HPI - General Chief complaint: Altered Mental Status Stated complaint: Weakness Time Seen by Provider: 07/15/22 11:22 Source: EMS Mode of arrival: EMS Limitations: altered mental status - History of Present Illness Initial comments: Dictation was produced using [employer] dictation software. please excuse any grammatical, word or spelling errors. Chief Complaint: 71-year-old male presents emergency department for weakness and total body edema History of Present Illness: 71-year-old male with history of liver failure, en cephalitis and hepatitis C treated presents with sister for worsening weakness, generalized fatigue and pitting edema to the abdomen extremities. Patient is a poor historian unable to 5 history of present illness. Sister the bedside provides history of present illness. Patient was just hospitalized approximately one week ago for decompensated liver cirrhosis. He was evaluated by GI. Patient has also had paracentesis. The ROS documented in this emergency department record has been reviewed and confirmed by me. Those systems with pertinent positive or negative responses have been documented in the HPI. All other systems are other negative and/or noncontributory. PHYSICAL EXAM: General Impression: Alert and oriented x3/4, not in acute distress HEENT: Normocephalic atraumatic, extra-ocular movements intact, pupils equal and reactive to light bilaterally, dry mucous members, lethargic Cardiovascular: Heart regular rate and rhythm Chest: Able to complete full sentences, no retractions, no tachypnea Abdomen: abdomen soft, tense abdomen with positive fluid wave, non-distended, no organomegaly Musculoskeletal: Pulses present and equal in all extremities, no peripheral edema Motor: no focal deficits noted Neurological: CN II-XII grossly intact, no focal motor or sensory deficits noted Skin: Intact with no visualized rashes Psych: Normal affect and mood ED course: 71-year-old male with past medical history of liver disease presents to the emergency department for worsening lethargy and extremity swelling. Vital Signs upon arrival are within acceptable limits. Patient is also severe frail appearing at the bedside. He's got evidence of ascites and cirrhosis however is not in any sort of significant distress. Patient is a lactic acidosis in 0.5. Coag panel is unremarkable. Metabolic panel shows sodium 125, lactic acidosis of 4.3, rest of vitals within acceptable limits. Computed tomography scan of brain is unremarkable. Chest x-ray shows no acute processes. Given patient's frail nature and grave disability he'll be admitted for medical monitoring. There is suspicion of acute infectious process. Patient is started on broad spectrum metabolic panel. Patient mid to a [facility] hospitalist group. EKG interpretation: Ventricular rate 47, sinus tachycardia,. Interval 1:30, care is 86, QTC 349. No CT prolongation, no QTC prolongation, no ST or T-wave changes noted. EKG compared to 07/04/2022 showing no changes. Overall, this EKG is unremarkable - Related Data Previous Rx's Medication Instructions Recorded Diltiazem Cd [Cardizem CD] 180 mg PO DAILY #30 cap 07/07/22 Furosemide [Lasix] 40 mg PO BID #60 tablet 07/07/22 Spironolactone [Aldactone] 100 mg PO DAILY #120 tab 07/07/22 Thiamine [Vitamin B-1] 100 mg PO BID-W/MEALS #60 tab 07/07/22 Allergies Allergy/AdvReac Type Severity Reaction Status Date / Time No Known Allergies Allergy Verified 07/15/22 12:29 Review of Systems ROS Statement: Those systems with pertinent positive or pertinent negative responses have been documented in the HPI. ROS Other: All systems not noted in ROS Statement are negative. Past Medical History Past Medical History: Liver Disease Additional Past Medical History / Comment(s): liver failure ETOH, encephalitis, Hepatitis C History of Any Multi-Drug Resistant Organisms: None Reported Past Surgical History: Orthopedic Surgery Additional Past Surgical History / Comment(s): broke both legs when he was younger Past Anesthesia/Blood Transfusion Reactions: No Reported Reaction Past Psychological History: No Psychological Hx Reported Smoking Status: Current every day smoker Past Alcohol Use History: Heavy Past Drug Use History: Marijuana - Past Family History Father Family Medical History: No Reported History Additional Family Medical History / Comment(s): Pt states father was healthy Mother Family Medical History: Dementia Family Additional Family Medical History / Comment(s): Denies any heart disease or cancer in the family General Exam Limitations: altered mental status Course Vital Signs 07/15/22 07/15/22 11:10 12:39 Temperature 97.5 F L Pulse Rate 65 99 Respiratory 18 16 Rate Blood Pressure 92/73 95/77 O2 Sat by Pulse 97 97 Oximetry Medical Decision Making - Lab Data Result diagrams: 07/15/22 11:40 07/15/22 11:40 Lab Results 07/15/22 07/15/22 07/15/22 Range/Units 11:40 11:40 11:40 WBC 16.5 H (3.8-10.6) k/uL RBC 4.54 (4.30-5.90) m/uL Hgb 14.8 (13.0-17.5) gm/dL Hct 44.6 (39.0-53.0) % MCV 98.3 (80.0-100.0) fL MCH 32.5 (25.0-35.0) pg MCHC 33.1 (31.0-37.0) g/dL RDW 15.0 (11.5-15.5) % Plt Count 129 L (150-450) k/uL MPV 9.6 Neutrophils % 90 % Lymphocytes % 4 % Monocytes % 5 % Eosinophils % 0 % Basophils % 0 % Neutrophils # 14.8 H (1.3-7.7) k/uL Lymphocytes # 0.6 L (1.0-4.8) k/uL Monocytes # 0.7 (0-1.0) k/uL Eosinophils # 0.1 (0-0.7) k/uL Basophils # 0.0 (0-0.2) k/uL PT 13.8 H (9.0-12.0) sec INR 1.3 H (<1.2) APTT 27.7 (22.0-30.0) sec Sodium 125 L (137-145) mmol/L Potassium 3.9 (3.5-5.1) mmol/L Chloride 91 L (98-107) mmol/L Carbon Dioxide 21 L (22-30) mmol/L Anion Gap 13 mmol/L BUN 42 H (9-20) mg/dL Creatinine 1.36 H (0.66-1.25) mg/dL Est GFR (CKD-EPI)AfAm 60 (>60 ml/min/1.73 sqM) Est GFR (CKD-EPI)NonAf 52 (>60 ml/min/1.73 sqM) Glucose 135 H (74-99) mg/dL Plasma Lactic Acid Gordon (0.7-2.0) mmol/L Calcium 8.5 (8.4-10.2) mg/dL Magnesium 2.0 (1.6-2.3) mg/dL Total Bilirubin 4.2 H (0.2-1.3) mg/dL AST 35 (17-59) U/L ALT 33 (4-49) U/L Alkaline Phosphatase 128 H (38-126) U/L Ammonia (<30) umol/L Total Protein 6.3 (6.3-8.2) g/dL Albumin 3.0 L (3.5-5.0) g/dL 07/15/22 Range/Units 11:40 WBC (3.8-10.6) k/uL RBC (4.30-5.90) m/uL Hgb (13.0-17.5) gm/dL Hct (39.0-53.0) % MCV (80.0-100.0) fL MCH (25.0-35.0) pg MCHC (31.0-37.0) g/dL RDW (11.5-15.5) % Plt Count (150-450) k/uL MPV Neutrophils % % Lymphocytes % % Monocytes % % Eosinophils % % Basophils % % Neutrophils # (1.3-7.7) k/uL Lymphocytes # (1.0-4.8) k/uL Monocytes # (0-1.0) k/uL Eosinophils # (0-0.7) k/uL Basophils # (0-0.2) k/uL PT (9.0-12.0) sec INR (<1.2) APTT (22.0-30.0) sec Sodium (137-145) mmol/L Potassium (3.5-5.1) mmol/L Chloride (98-107) mmol/L Carbon Dioxide (22-30) mmol/L Anion Gap mmol/L BUN (9-20) mg/dL Creatinine (0.66-1.25) mg/dL Est GFR (CKD-EPI)AfAm (>60 ml/min/1.73 sqM) Est GFR (CKD-EPI)NonAf (>60 ml/min/1.73 sqM) Glucose (74-99) mg/dL Plasma Lactic Acid Gordon 4.3 H* (0.7-2.0) mmol/L Calcium (8.4-10.2) mg/dL Magnesium (1.6-2.3) mg/dL Total Bilirubin (0.2-1.3) mg/dL AST (17-59) U/L ALT (4-49) U/L Alkaline Phosphatase (38-126) U/L Ammonia 14 (<30) umol/L Total Protein (6.3-8.2) g/dL Albumin (3.5-5.0) g/dL Disposition Clinical Impression: Liver failure Disposition: ADMITTED IP TO THIS [facility] Condition: Fair Referrals: Kyle Moreau MD [Primary Care Provider] - 1-2 days Decision Time: 14:29
[2022-07-15 12:06] LABS: Basophils % (A) 0 %; Eosinophils # (A) 0.1 k/uL (0-0.7); Eosinophils % (A) 0 %; HCT 44.6 % (39.0-53.0); HGB 14.8 gm/dL (13.0-17.5); Lymphocytes # (A) 0.6 k/uL (1.0-4.8); Lymphocytes % (A) 4 %; MCH 32.5 pg (25.0-35.0); MCHC 33.1 g/dL (31.0-37.0); MCV 98.3 fL (80.0-100.0); Mean Platelet Volume 9.6; Monocytes # (A) 0.7 k/uL (0-1.0); Monocytes % (A) 5 %; Neutrophils # (A) 14.8 k/uL (1.3-7.7); Neutrophils % (A) 90 %; Platelet Count 129 k/uL (150-450); RBC 4.54 m/uL (4.30-5.90); WBC 16.5 k/uL (3.8-10.6)
[2022-07-15 12:27] LABS: Calcium 8.5 mg/dL (8.4-10.2); Potassium 3.9 mmol/L (3.5-5.1); Total Bilirubin 4.2 mg/dL (0.2-1.3); Total Protein 6.3 g/dL (6.3-8.2)
[2022-07-15 12:29] LABS: Lactic Acid, Venous 4.3 mmol/L (0.7-2.0)
[2022-07-15 12:36] LABS: INR 1.3 (<1.2); Partial Thromboplastin Time 27.7 sec (22.0-30.0); Prothrombin Time 13.8 sec (9.0-12.0)
--- NOTE | 2022-07-15 12:43 | CT ---
EXAMINATION TYPE: CT brain wo con CT DLP: 1155.4 mGycm, Automated exposure control for dose reduction was used. DATE OF EXAM: 07/15/2022 12:36 PM COMPARISON: None. CLINICAL INDICATION:Male, 71 years old with history of ams, AMS and weakness TECHNIQUE: Brain: Multiple axial CT images of the brain were obtained without IV contrast. Coronal and sagittal reformats reviewed. FINDINGS: Brain: Extra-axial spaces: No abnormal extra-axial fluid collections. Ventricular system: Ex vacuo dilatation of the left lateral ventricle temporal horn. Cerebral parenchyma: No acute intraparenchymal hemorrhage or mass effect. The shah-white junction is well differentiated. Scattered hypoattenuating areas are seen within the white matter. Encephalomal acia demonstrated within the middle cranial fossa involving the temporal lobe. Additional focus of en cephalomalacia along the left occipital lobe abutting the falx. Cerebellum: Unremarkable. Mass effect: No evidence of midline shift. Intracranial vasculature: Atherosclerotic calcifications of the intracranial vessels. Soft tissues: Normal. Calvarium/osseous structures: No depressed skull fracture. Paranasal sinuses and mastoid air cells: Clear Visualized orbits: Orbital contents are intact. IMPRESSION: 1. No acute intracranial process. 2. Remote injuries to the left temporal and occipital lobes. 3. Nonspecific white matter changes, likely secondary to chronic small vessel ischemic disease.
[2022-07-15] MEDS ORDERED: PIPERACILLIN-TAZOBACTAM 3.375 GM in SODIUM CHLORIDE 0.9% 100 ML IVPB STA (13:51)
[2022-07-15] MEDS ORDERED: VANCOMYCIN IV PER PHARMACY 1 EACH MISC MISCELLANE PRN (13:51)
[2022-07-15] MEDS ORDERED: VANCOMYCIN 1,250 MG in SODIUM CHLORIDE 0.9% 250 ML IVPB STA (13:59)
[2022-07-15] MEDS ORDERED: NALOXONE 0.4 MG/ML 1 ML VIAL IV PRN (16:14)
[2022-07-15] MEDS: SODIUM CHLORIDE 0.9% 1,000 ML IV SCH (17:08)
--- NOTE | 2022-07-15 19:39 | P.HPIM ---
History of Present Illness H&P Date: 07/15/22 Chief Complaint: Altered mental status/weakness 71-year-old male patient with history of liver disease brought to ED with concerns about weakness and change in mental status; also complains of generalized body edema; patient does have history of liver failure related to hepatitis C and history of encephalitis in the past, brought to ED by patient's sister for progressive weakness and generalized fatigue associated with worsening pitting edema extending all the way from extremities to lower abdominal area; patient is a very poor historian so history is obtained from ER records Patient was recently discharged from the hospital after being treated for decompensated liver disease at which time he had evaluation completed by GI and underwent paracentesis Workup completed in ED Metabolic panel shows sodium 125, lactic acidosis of 4.3, rest of labs within acceptable limits; CBC reveals a WBC of 16.5, hemoglobin of 14.8 and platelet count of 129, PT of 13.8 with INR of 1.3. Lactic acid is markedly elevated at 4.30 -- Computed tomography scan of brain is unremarkable. Chest x-ray shows no acute processes. EKG interpretation: Ventricular rate 47, sinus tachycardia,. Interval 1:30, care is 86, QTC 349. No MD prolongation, no QTC prolongation, no ST or T-wave changes noted. EKG compared to 07/04/2022 showing no changes. Overall, this EKG is unremarkable Patient was tachycardic and blood pressure was soft upon arrival to ED with susp icion of acute infectious process. Patient is started on broad spectrum metabolic panel. Review of Systems ROS unobtainable: due to mental status Past Medical History Past Medical History: Liver Disease Additional Past Medical History / Comment(s): liver failure ETOH, encephalitis, Hepatitis C History of Any Multi-Drug Resistant Organisms: None Reported Past Surgical History: Orthopedic Surgery Additional Past Surgical History / Comment(s): broke both legs when he was younger Past Anesthesia/Blood Transfusion Reactions: No Reported Reaction Past Psychological History: No Psychological Hx Reported Additional Psychological History / Comment(s): Pt resides with his sister, Arlette and her . He does not drive, his sister takes him places. Per Arlette he is normally ambulatory but as of recent cannot walk on his own Smoking Status: Current every day smoker Past Alcohol Use History: Heavy Additional Past Alcohol Use History / Comment(s): Pt started smoking about 1968 and was an on and off smoker until 3-4 months ago when he quit. Pt use to drink 3-4 beers a night but quit drinking 3-4 months ago. Past Drug Use History: Marijuana - Past Family History Father Family Medical History: Liver Disease Additional Family Medical History / Comment(s): Pt states father was healthy Mother Family Medical History: Dementia Family Additional Family Medical History / Comment(s): Denies any heart disease or cancer in the family Medications and Allergies Home Medications Medication Instructions Recorded Confirmed Type Diltiazem Cd [Cardizem CD] 180 mg PO DAILY #30 cap 07/07/22 07/15/22 Rx Furosemide [Lasix] 40 mg PO BID #60 tablet 07/07/22 07/15/22 Rx Spironolactone [Aldactone] 100 mg PO DAILY #120 tab 07/07/22 07/15/22 Rx Thiamine [Vitamin B-1] 100 mg PO BID-W/MEALS #60 tab 07/07/22 07/15/22 Rx Allergies Allergy/AdvReac Type Severity Reaction Status Date / Time No Known Allergies Allergy Verified 07/15/22 12:29 Physical Exam Vitals: Vital Signs Temp Pulse Resp BP Pulse Ox 07/15/22 17:29 97.8 F 07/15/22 17:11 65 16 94/74 99 07/15/22 15:25 94 16 88/65 95 07/15/22 14:41 83 16 91/70 95 07/15/22 12:39 99 16 95/77 97 07/15/22 11:10 97.5 F L 65 18 92/73 97 Intake and Output 07/15/22 07/15/22 07/15/22 06:59 14:59 22:59 Other: Weight 68.039 kg General Impression: Alert and oriented x3/4, not in acute distress HEENT: Normocephalic atraumatic, extra-ocular movements intact, pupils equal and reactive to light bilaterally, dry mucous members, lethargic Cardiovascular: Heart regular rate and rhythm Chest: Able to complete full sentences, no retractions, no tachypnea Abdomen: abdomen soft, tense abdomen with positive fluid wave, non-distended, no organomegaly Musculoskeletal: Pulses present and equal in all extremities, no peripheral edema Motor: no focal deficits noted Neurological: CN II-XII grossly intact, no focal motor or sensory deficits noted Skin: Intact with no visualized rashes Psych: Normal affect and mood Results CBC & Chem 7: 07/15/22 11:40 07/15/22 11:40 Labs: Abnormal Lab Results - Last 24 Hours (Table) 07/15/22 07/15/22 07/15/22 Range/Units 11:40 11:40 11:40 WBC 16.5 H (3.8-10.6) k/uL Plt Count 129 L (150-450) k/uL Neutrophils # 14.8 H (1.3-7.7) k/uL Lymphocytes # 0.6 L (1.0-4.8) k/uL PT 13.8 H (9.0-12.0) sec INR 1.3 H (<1.2) Sodium 125 L (137-145) mmol/L Chloride 91 L (98-107) mmol/L Carbon Dioxide 21 L (22-30) mmol/L BUN 42 H (9-20) mg/dL Creatinine 1.36 H (0.66-1.25) mg/dL Glucose 135 H (74-99) mg/dL Plasma Lactic Acid Gordon (0.7-2.0) mmol/L Total Bilirubin 4.2 H (0.2-1.3) mg/dL Alkaline Phosphatase 128 H (38-126) U/L Albumin 3.0 L (3.5-5.0) g/dL 07/15/22 Range/Units 11:40 WBC (3.8-10.6) k/uL Plt Count (150-450) k/uL Neutrophils # (1.3-7.7) k/uL Lymphocytes # (1.0-4.8) k/uL PT (9.0-12.0) sec INR (<1.2) Sodium (137-145) mmol/L Chloride (98-107) mmol/L Carbon Dioxide (22-30) mmol/L BUN (9-20) mg/dL Creatinine (0.66-1.25) mg/dL Glucose (74-99) mg/dL Plasma Lactic Acid Gordon 4.3 H* (0.7-2.0) mmol/L Total Bilirubin (0.2-1.3) mg/dL Alkaline Phosphatase (38-126) U/L Albumin (3.5-5.0) g/dL Thrombosis Risk Factor Assmnt - Choose All That Apply Any of the Below Risk Factors Present?: Yes Each Factor Represents 1 point: Medical pt on bed rest, Obesity (BMI >25), Swollen legs (current) Other Risk Factors: Yes Each Risk Factor Represents 2 Points: Age 61-74 years Thrombosis Risk Factor Assessment Total Risk Factor Score: 5 Thrombosis Risk Factor Assessment Level: High Risk Assessment and Plan Assessment: 1. Sepsis with unknown source; as indicated by leukocytosis, lactic acidosis, tachycardia and hypotension - Patient has been placed on IV Zosyn 3.375 g IV every 8 hours along with IV vancomycin; patient has been pancultured - We will monitor CBC, CRP, pro-calcitonin, lactic acid and follow culture results - Consult ID for further recommendations 2. Liver failure related to EtOH use/ significant ascites - Stigmata of chronic liver disease with thrombocytopenia, elevated INR - We will continue with home dose of Lasix and Aldactone - No urgent need for paracentesis at this time - Patient was discharged from the hospital a week ago and underwent thorough evaluation by GI; hold off on GI consult at this time 3. Significant hyponatremia; related to fluid retention from liver cirrhosis - Sodium level is down pretty significantly from last admission down to 125 from baseline of 133 - Anticipate worsening with diuretic therapy; we will monitor sodium level closely and make recommendations accordingly 4. Weakness/debility; patient is frail; likely debility from chronic advanced liver disease; we will consult PT/OT - We'll consult palliative care for clarification of goals of care 5. Malnutrition; place a dietary consult for nutritional supplements DVT prophylaxis; SCDs/subcu heparin CODE STATUS; patient is currently full code at this time
[2022-07-15] MEDS ORDERED: MORPHINE SULFATE 2 MG/ML SYRINGE IVP PRN (19:49)
[2022-07-15] MEDS ORDERED: MELATONIN 5 MG TABLET PO PRN (19:50)
[2022-07-15] MEDS: FUROSEMIDE 40 MG TAB PO SCH (20:43)
[2022-07-15] MEDS: PIPERACILLIN-TAZOBACTAM 3.375 GM in SODIUM CHLORIDE 0.9% 100 ML IVPB SCH (23:13)
[2022-07-16] MEDS: THIAMINE 100 MG TAB PO SCH ×2 (06:27→17:17)
[2022-07-16 06:50] LABS: Basophils % (A) 0 %; Eosinophils # (A) 0.1 k/uL (0-0.7); Eosinophils % (A) 0 %; HCT 40.6 % (39.0-53.0); HGB 13.6 gm/dL (13.0-17.5); Lymphocytes # (A) 0.7 k/uL (1.0-4.8); Lymphocytes % (A) 6 %; MCH 32.8 pg (25.0-35.0); MCHC 33.5 g/dL (31.0-37.0); MCV 97.9 fL (80.0-100.0); Mean Platelet Volume 9.9; Monocytes # (A) 0.7 k/uL (0-1.0); Monocytes % (A) 6 %; Neutrophils # (A) 10.5 k/uL (1.3-7.7); Neutrophils % (A) 86 %; Platelet Count 101 k/uL (150-450); RBC 4.14 m/uL (4.30-5.90); RDW 14.9 % (11.5-15.5); WBC 12.2 k/uL (3.8-10.6)
[2022-07-16 07:10] LABS: Calcium 8.2 mg/dL (8.4-10.2); Potassium 3.4 mmol/L (3.5-5.1)
[2022-07-16] MEDS: FUROSEMIDE 40 MG TAB PO SCH (08:28)
[2022-07-16] MEDS: PIPERACILLIN-TAZOBACTAM 3.375 GM in SODIUM CHLORIDE 0.9% 100 ML IVPB SCH ×3 (08:28→23:26)
[2022-07-16] MEDS: SPIRONOLACTONE 25 MG TAB PO SCH (08:28)
[2022-07-16] MEDS ORDERED: VANCOMYCIN 1,250 MG in SODIUM CHLORIDE 0.9% 250 ML IVPB SCH (09:00)
[2022-07-16] MEDS: MIDODRINE 5 MG TAB PO SCH ×3 (10:20→17:17)
[2022-07-16] MEDS ORDERED: POTASSIUM CHLORIDE ER 20 MEQ TAB.ER PO STA (13:27)
--- NOTE | 2022-07-16 13:34 | P.PN ---
Subjective 71-year-old male patient with history of liver disease brought to ED with concerns about weakness and change in mental status; also complains of gen eralized body edema; patient does have history of liver failure related to hepatitis C and history of encephalitis in the past, brought to ED by patient's sister for progressive weakness and generalized fatigue associated with worsening pitting edema extending all the way from extremities to lower a bdominal area; patient is a very poor historian so history is obtained from ER records Patient was recently discharged from the hospital after being treated for decompensated liver disease at which time he had evaluation completed by GI and underwent paracentesis Workup completed in ED Metabolic panel shows sodium 125, lactic acidosis of 4.3, rest of labs within acceptable limits; CBC reveals a WBC of 16.5, hemoglobin of 14.8 and platelet count of 129, PT of 13.8 with INR of 1.3. Lactic acid is markedly elevated at 4.30 -- Computed tomography scan of brain is unremarkable. Chest x-ray shows no acute processes. EKG interpretation: Ventricular rate 47, sinus tachycardia,. Interval 1:30, care is 86, QTC 349. No TX prolongation, no QTC prolongation, no ST or T-wave changes noted. EKG compared to 07/04/2022 showing no changes. Overall, this EKG is unremarkable Patient was tachycardic and blood pressure was soft upon arrival to ED with suspicion of acute infectious process. Patient is started on broad spectrum metabolic panel. Objective - Vital Signs Vital signs: Vital Signs Temp 97.6 F 07/16/22 03:50 Pulse 88 07/16/22 07:41 Resp 14 07/16/22 07:41 BP 88/63 07/16/22 07:41 Pulse Ox 94 L 07/16/22 07:41 FiO2 Intake & Output 07/15/22 07/16/22 07/16/22 18:59 06:59 18:59 Intake Total 360 Balance 360 Weight 68.039 kg Intake: Oral 360 Other: Voiding Method Urinal # Voids 1 - Labs CBC & Chem 7: 07/16/22 06:19 07/16/22 06:19 Labs: Abnormal Lab Results - Last 24 Hours (Table) 07/15/22 07/15/22 07/15/22 Range/Units 11:40 11:40 11:40 WBC 16.5 H (3.8-10.6) k/uL RBC (4.30-5.90) m/uL Plt Count 129 L (150-450) k/uL Neutrophils # 14.8 H (1.3-7.7) k/uL Lymphocytes # 0.6 L (1.0-4.8) k/uL PT 13.8 H (9.0-12.0) sec INR 1.3 H (<1.2) Sodium 125 L (137-145) mmol/L Potassium (3.5-5.1) mmol/L Chloride 91 L (98-107) mmol/L Carbon Dioxide 21 L (22-30) mmol/L BUN 42 H (9-20) mg/dL Creatinine 1.36 H (0.66-1.25) mg/dL Glucose 135 H (74-99) mg/dL Plasma Lactic Acid Gordon (0.7-2.0) mmol/L Calcium (8.4-10.2) mg/dL Total Bilirubin 4.2 H (0.2-1.3) mg/dL Alkaline Phosphatase 128 H (38-126) U/L C-Reactive Protein (<1.0) mg/dL Albumin 3.0 L (3.5-5.0) g/dL 07/15/22 07/16/22 07/16/22 Range/Units 11:40 06:19 06:19 WBC 12.2 H (3.8-10.6) k/uL RBC 4.14 L (4.30-5.90) m/uL Plt Count 101 L (150-450) k/uL Neutrophils # 10.5 H (1.3-7.7) k/uL Lymphocytes # 0.7 L (1.0-4.8) k/uL PT (9.0-12.0) sec INR (<1.2) Sodium 124 L (137-145) mmol/L Potassium 3.4 L (3.5-5.1) mmol/L Chloride 94 L (98-107) mmol/L Carbon Dioxide 19 L (22-30) mmol/L BUN 41 H (9-20) mg/dL Creatinine (0.66-1.25) mg/dL Glucose 124 H (74-99) mg/dL Plasma Lactic Acid Gordon 4.3 H* (0.7-2.0) mmol/L Calcium 8.2 L (8.4-10.2) mg/dL Total Bilirubin (0.2-1.3) mg/dL Alkaline Phosphatase (38-126) U/L C-Reactive Protein 4.0 H (<1.0) mg/dL Albumin (3.5-5.0) g/dL Assessment and Plan Assessment: 1. Sepsis with unknown source; as indicated by leukocytosis, lactic acidosis, tachycardia and hypotension - Patient has been placed on IV Zosyn 3.375 g IV every 8 hours along with IV vancomycin; patient has been pancultured - follow culture results - Consult ID for further recommendations -Patient currently on Zosyn and IV vancomycin 2. Liver failure related to EtOH use/ significant ascites - Stigmata of chronic liver disease with thrombocytopenia, elevated INR - We will continue with home dose of Lasix and Aldactone - No urgent need for paracentesis at this time - Patient was discharged from the hospital a week ago and underwent thorough evaluation by GI; GI consult is ordered -I talked to the sister Arlette At [phone] , and she told me she does not want him to be resuscitated based upon his wishes and he would like to be comfortable and she was considering hospice and wants to talk to palliative care team. 3. Significant hyponatremia; related to fluid retention from liver cirrhosis - Sodium level is down pretty significantly from last admission down to 125 from baseline of 133 - Anticipate worsening with diuretic therapy; we will monitor sodium level closely and make recommendations accordingly 4. Weakness/debility; patient is frail; likely debility from chronic advanced liver disease; we will consult PT/OT - We'll consult palliative care for clarification of goals of care 5. Malnutrition; place a dietary consult for nutritional supplements DVT prophylaxis; SCDs/subcu heparin CODE STATUS; patient is currently full code at this time
[2022-07-16] MEDS: SODIUM CHLORIDE 0.9% 1,000 ML IV SCH (16:44)
[2022-07-16] MEDS: FUROSEMIDE 10 MG/ML 4 ML VIAL IV SCH (20:02)
--- NOTE | 2022-07-16 23:21 | P.CONS ---
History of Present Illness - Reason for Consult Consult date: 07/16/22 - History of Present Illness Patient is a 71-year-old male with a past medical history significant for liver failure/cirrhosis related to chronic hepatitis C and history of uremic encephalopathy patient was brought into the hospital 2 days ago for evaluation of progressive weakness and generalized fatigue along with bilateral lower extremity pitting edema with symptom has been getting worse for 2 days before pr esentation to the hospital, patient on arrival to the ER was afebrile and no fever have been recorded subsequently patient is currently breathing comfortably on room air blood pressure has been marginal however not requiring any pressor support patient did have elevated lactic acid white count was elevated 16.5 with a left shift BUN and creatinine was mildly elevated liver exams are normal patient was started on vancomycin and Zosyn infectious disease was consulted for further management of antibiotic therapy patient did have a chest x-ray low lung volumes with patchy perihilar opacity, patient himself unreliable historian most information has been obtained by asking leading question Past Medical History Past Medical History: Liver Disease Additional Past Medical History / Comment(s): liver failure ETOH, encephalitis, Hepatitis C History of Any Multi-Drug Resistant Organisms: None Reported Past Surgical History: Orthopedic Surgery Additional Past Surgical History / Comment(s): broke both legs when he was younger Past Anesthesia/Blood Transfusion Reactions: No Reported Reaction Past Psychological History: No Psychological Hx Reported Additional Psychological History / Comment(s): Pt resides with his sister, Arlette and her . He does not drive, his sister takes him places. Per Arlette he is normally ambulatory but as of recent cannot walk on his own Smoking Status: Current every day smoker Past Alcohol Use History: Heavy Additional Past Alcohol Use History / Comment(s): Pt started smoking about 1968 and was an on and off smoker until 3-4 months ago when he quit. Pt use to drink 3-4 beers a night but quit drinking 3-4 months ago. Past Drug Use History: Marijuana - Past Family History Father Family Medical History: Liver Disease Additional Family Medical History / Comment(s): Pt states father was healthy Mother Family Medical History: Dementia Family Additional Family Medical History / Comment(s): Denies any heart disease or cancer in the family Medications and Allergies Home Medications Medication Instructions Recorded Confirmed Type Diltiazem Cd [Cardizem CD] 180 mg PO DAILY #30 cap 07/07/22 07/15/22 Rx Furosemide [Lasix] 40 mg PO BID #60 tablet 07/07/22 07/15/22 Rx Spironolactone [Aldactone] 100 mg PO DAILY #120 tab 07/07/22 07/15/22 Rx Thiamine [Vitamin B-1] 100 mg PO BID-W/MEALS #60 tab 07/07/22 07/15/22 Rx Allergies Allergy/AdvReac Type Severity Reaction Status Date / Time No Known Allergies Allergy Verified 07/15/22 12:29 Physical Exam Vitals: Vital Signs Temp Pulse Pulse Resp BP BP Pulse Ox 07/16/22 07:41 88 14 88/63 94 L 07/16/22 03:50 97.6 F 83 16 99/61 95 07/16/22 01:56 79 16 07/16/22 00:00 97.7 F 79 16 93/61 95 07/15/22 20:00 97.6 F 103 H 18 92/67 92 L 07/15/22 17:45 97.6 F 105 H 17 104/72 95 07/15/22 17:29 97.8 F 07/15/22 17:11 65 16 94/74 99 07/15/22 15:25 94 16 88/65 95 07/15/22 14:41 83 16 91/70 95 07/15/22 12:39 99 16 95/77 97 07/15/22 11:10 97.5 F L 65 18 92/73 97 Intake and Output 07/15/22 07/16/22 07/16/22 22:59 06:59 14:59 Intake Total 360 Balance 360 Intake: Oral 360 Other: Voiding Method Urinal # Voids 1 Weight 68.039 kg Results CBC & Chem 7: 07/16/22 06:19 07/16/22 06:19 Labs: Abnormal Lab Results - Last 24 Hours (Table) 07/15/22 07/15/22 07/15/22 Range/Units 11:40 11:40 11:40 WBC 16.5 H (3.8-10.6) k/uL RBC (4.30-5.90) m/uL Plt Count 129 L (150-450) k/uL Neutrophils # 14.8 H (1.3-7.7) k/uL Lymphocytes # 0.6 L (1.0-4.8) k/uL PT 13.8 H (9.0-12.0) sec INR 1.3 H (<1.2) Sodium 125 L (137-145) mmol/L Potassium (3.5-5.1) mmol/L Chloride 91 L (98-107) mmol/L Carbon Dioxide 21 L (22-30) mmol/L BUN 42 H (9-20) mg/dL Creatinine 1.36 H (0.66-1.25) mg/dL Glucose 135 H (74-99) mg/dL Plasma Lactic Acid Gordon (0.7-2.0) mmol/L Calcium (8.4-10.2) mg/dL Total Bilirubin 4.2 H (0.2-1.3) mg/dL Alkaline Phosphatase 128 H (38-126) U/L C-Reactive Protein (<1.0) mg/dL Albumin 3.0 L (3.5-5.0) g/dL 07/15/22 07/16/22 07/16/22 Range/Units 11:40 06:19 06:19 WBC 12.2 H (3.8-10.6) k/uL RBC 4.14 L (4.30-5.90) m/uL Plt Count 101 L (150-450) k/uL Neutrophils # 10.5 H (1.3-7.7) k/uL Lymphocytes # 0.7 L (1.0-4.8) k/uL PT (9.0-12.0) sec INR (<1.2) Sodium 124 L (137-145) mmol/L Potassium 3.4 L (3.5-5.1) mmol/L Chloride 94 L (98-107) mmol/L Carbon Dioxide 19 L (22-30) mmol/L BUN 41 H (9-20) mg/dL Creatinine (0.66-1.25) mg/dL Glucose 124 H (74-99) mg/dL Plasma Lactic Acid Gordon 4.3 H* (0.7-2.0) mmol/L Calcium 8.2 L (8.4-10.2) mg/dL Total Bilirubin (0.2-1.3) mg/dL Alkaline Phosphatase (38-126) U/L C-Reactive Protein 4.0 H (<1.0) mg/dL Albumin (3.5-5.0) g/dL Assessment and Plan Plan: 1patient with a leukocytosis which is likely multifactorial in this patient do have underlying liver cirrhosis and significant ascites with recent paracentesis patient has not developed significant ascites again and would benefit from a diagnostic and therapeutic paracentesis with the fluid should be sent for cultures. 2patient to continue with the Zosyn however discontinue vancomycin decrease risk of nephrotoxicity. We will follow on clinical condition and cultures to further adjust medication if needed Thank you for this consultation will follow this patient along with you Time with Patient: Greater than 30
[2022-07-17] MEDS: MIDODRINE 5 MG TAB PO SCH ×3 (06:33→19:40)
[2022-07-17] MEDS: THIAMINE 100 MG TAB PO SCH ×2 (06:33→19:40)
--- NOTE | 2022-07-17 08:26 | P.PN ---
Subjective Principal diagnosis: Liver failure with cirrhosis This is 71-year-old white male with decompensated liver failure. Admitted for significant ascites. I suspect he might need appropriate paracentesis again. Prognosis is guarded. He is a poor historian somewhat related to his presbycusis Objective - Vital Signs Vital signs: Vital Signs Temp 97.6 F 07/17/22 00:00 Pulse 82 07/17/22 03:33 Resp 18 07/17/22 03:33 BP 98/63 07/17/22 03:33 Pulse Ox 96 07/17/22 03:33 FiO2 Intake & Output 07/16/22 07/17/22 07/17/22 18:59 06:59 18:59 Intake Total 360 Output Total 150 Balance 210 Intake: Oral 360 Output: Urine 150 Other: Voiding Method Urinal Urinal Diaper External Catheter # Voids 1 1 # Bowel Movements 1 1 - Constitutional General appearance: Present: no acute distress - EENT Eyes: Absent: abnormal pupil - Neck Neck: Absent: lymphadenopathy - Respiratory Respiratory: bilateral: CTA - Cardiovascular Rhythm: regular Heart sounds: normal: S1, S2 Abnormal Heart Sounds: Absent: S3 Gallop - Gastrointestinal General gastrointestinal: Present: distended - Integumentary Integumentary: Absent: cellulitis - Labs CBC & Chem 7: 07/16/22 06:19 07/16/22 06:19 Labs: Abnormal Lab Results - Last 24 Hours (Table) 07/16/22 07/16/22 07/16/22 Range/Units 06:19 12:48 16:16 Plasma Lactic Acid Gordon 2.9 H* 2.1 H* (0.7-2.0) mmol/L Procalcitonin 0.58 H (0.02-0.09) ng/mL 07/16/22 07/17/22 07/17/22 Range/Units 19:40 00:54 05:21 Plasma Lactic Acid Gordon 2.4 H* 2.4 H* 2.7 H* (0.7-2.0) mmol/L Procalcitonin (0.02-0.09) ng/mL Microbiology - Last 24 Hours (Table) 07/15/22 11:53 Blood Culture - Preliminary Blood No Growth after 24 hours 07/15/22 11:40 Blood Culture - Preliminary Blood No Growth after 24 hours Assessment and Plan (1) Liver failure Current Visit: Yes Status: Acute Code(s): K72.90 - HEPATIC FAILURE, UNSPECIFIED WITHOUT COMA SNOMED Code(s): 64638197 (2) Ascites of liver Current Visit: No Status: Acute Code(s): R18.8 - OTHER ASCITES SNOMED Code(s): 158473742 (3) Bilateral lower extremity edema Current Visit: No Status: Acute Code(s): R60.0 - LOCALIZED EDEMA SNOMED Code(s): 079890441 (4) Liver cirrhosis Current Visit: No Status: Acute Code(s): K74.60 - UNSPECIFIED CIRRHOSIS OF LIVER SNOMED Code(s): 20539570 (5) Umbilical hernia Current Visit: No Status: Acute Code(s): K42.9 - UMBILICAL HERNIA WITHOUT OBSTRUCTION OR GANGRENE SNOMED Code(s): 441881161 Plan: Continue diuresis. Appreciate GI input. Check CBC and CMP in a.m. Case management consulted for possible hospice
[2022-07-17] MEDS: PIPERACILLIN-TAZOBACTAM 3.375 GM in SODIUM CHLORIDE 0.9% 100 ML IVPB SCH ×3 (10:16→23:10)
[2022-07-17] MEDS: FUROSEMIDE 10 MG/ML 4 ML VIAL IV SCH ×2 (10:16→20:06)
[2022-07-17] MEDS: SPIRONOLACTONE 25 MG TAB PO SCH (10:19)
[2022-07-17 12:39] VITALS: BMI 27.4
[2022-07-17] MEDS: SODIUM CHLORIDE 0.9% 1,000 ML IV SCH (19:40)
[2022-07-18] MEDS: THIAMINE 100 MG TAB PO SCH ×2 (06:04→16:40)
[2022-07-18] MEDS: MIDODRINE 5 MG TAB PO SCH ×3 (06:04→16:40)
--- NOTE | 2022-07-18 08:41 | P.PN ---
Subjective Principal diagnosis: Liver failure with cirrhosis This is 71-year-old white male with decompensated liver failure. Admitted for significant ascites. I suspect he might need appropriate paracentesis again. Prognosis is guarded. 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 I suspect he will need continued paracentesis. However the prognosis is poor. The plan is for home hospice Objective - Vital Signs Vital signs: Vital Signs Temp 97.3 F L 07/18/22 07:57 Pulse 74 07/18/22 07:57 Resp 16 07/18/22 07:57 BP 95/56 07/18/22 07:57 Pulse Ox 96 07/18/22 07:57 FiO2 Intake & Output 07/17/22 07/18/22 07/18/22 18:59 06:59 18:59 Intake Total 100 Output Total 100 Balance 0 Weight 68.039 kg Intake: Oral 100 Output: Urine 100 Other: Voiding Method Urinal Urinal Diaper Diaper External Catheter External Catheter # Voids 1 # Bowel Movements 1 1 - Constitutional General appearance: Present: no acute distress - EENT Eyes: Absent: abnormal pupil - Respiratory Respiratory: bilateral: CTA - Cardiovascular Rhythm: regular Heart sounds: normal: S1, S2 Abnormal Heart Sounds: Absent: S3 Gallop - Gastrointestinal General gastrointestinal: Present: distended - Labs CBC & Chem 7: 07/16/22 06:19 07/16/22 06:19 Labs: Abnormal Lab Results - Last 24 Hours (Table) 07/17/22 07/17/22 Range/Units 09:26 12:39 Plasma Lactic Acid Gordon 3.0 H* 3.2 H* (0.7-2.0) mmol/L Microbiology - Last 24 Hours (Table) 07/15/22 11:53 Blood Culture - Preliminary Blood No Growth after 48 hours 07/15/22 11:40 Blood Culture - Preliminary Blood No Growth after 48 hours Assessment and Plan (1) Liver failure Current Visit: Yes Status: Acute Code(s): K72.90 - HEPATIC FAILURE, UNSPECIFIED WITHOUT COMA SNOMED Code(s): 31787203 (2) Ascites of liver Current Visit: No Status: Acute Code(s): R18.8 - OTHER ASCITES SNOMED Code(s): 167962871 (3) Bilateral lower extremity edema Current Visit: No Status: Acute Code(s): R60.0 - LOCALIZED EDEMA SNOMED Code(s): 150166015 (4) Liver cirrhosis Current Visit: No Status: Acute Code(s): K74.60 - UNSPECIFIED CIRRHOSIS OF LIVER SNOMED Code(s): 12276603 (5) Umbilical hernia Current Visit: No Status: Acute Code(s): K42.9 - UMBILICAL HERNIA WITHOUT OBSTRUCTION OR GANGRENE SNOMED Code(s): 180684978 Plan: Continue diuresis. Appreciate GI input. Check CBC and CMP in a.m. Case management consulted for possible hospice Otherwise, intervention radiology for continued paracentesis
[2022-07-18] MEDS: PIPERACILLIN-TAZOBACTAM 3.375 GM in SODIUM CHLORIDE 0.9% 100 ML IVPB SCH ×3 (09:21→23:44)
[2022-07-18] MEDS: FUROSEMIDE 10 MG/ML 4 ML VIAL IV SCH ×2 (09:21→21:03)
[2022-07-18] MEDS: SPIRONOLACTONE 25 MG TAB PO SCH (09:22)
[2022-07-18] MEDS: SODIUM CHLORIDE 0.9% 1,000 ML IV SCH (16:44)
[2022-07-19] MEDS: MIDODRINE 5 MG TAB PO SCH ×3 (06:36→15:48)
[2022-07-19] MEDS: THIAMINE 100 MG TAB PO SCH ×2 (06:36→15:48)
--- NOTE | 2022-07-19 08:25 | P.PN ---
Subjective Principal diagnosis: Liver failure with cirrhosis This is 71-year-old white male with decompensated liver failure. Admitted for significant ascites. I suspect he might need appropriate paracentesis again. Prognosis is guarded. 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 I suspect he will need continued paracentesis. However the prognosis is poor. The plan is for home hospice Objective - Vital Signs Vital signs: Vital Signs Temp 97.8 F 07/19/22 04:00 Pulse 96 07/19/22 04:00 Resp 16 07/19/22 04:00 BP 107/80 07/19/22 04:00 Pulse Ox 94 L 07/19/22 04:00 FiO2 Intake & Output 07/18/22 07/19/22 07/19/22 18:59 06:59 18:59 Intake Total 10 0 Output Total 200 200 Balance -200 -190 0 Intake: IV 10 Invasive Line 1 10 Oral 0 Output: Urine 200 200 Other: Voiding Method Urinal External Catheter Diaper External Catheter # Voids 1 # Bowel Movements 1 1 - Constitutional General appearance: Present: no acute distress - EENT Eyes: Present: scleral icterus - Neck Neck: Absent: lymphadenopathy - Respiratory Respiratory: bilateral: diminished - Cardiovascular Rhythm: regular Heart sounds: normal: S1, S2 Abnormal Heart Sounds: Absent: S3 Gallop - Gastrointestinal General gastrointestinal: Present: soft. Absent: tenderness - Labs CBC & Chem 7: 07/16/22 06:19 07/16/22 06:19 Labs: Microbiology - Last 24 Hours (Table) 07/15/22 11:53 Blood Culture - Preliminary Blood No Growth after 72 hours 07/15/22 11:40 Blood Culture - Preliminary Blood No Growth after 72 hours Assessment and Plan (1) Liver failure Current Visit: Yes Status: Acute Code(s): K72.90 - HEPATIC FAILURE, UNSPECIFIED WITHOUT COMA SNOMED Code(s): 86730248 (2) Ascites of liver Current Visit: No Status: Acute Code(s): R18.8 - OTHER ASCITES SNOMED Code(s): 380650125 (3) Bilateral lower extremity edema Current Visit: No Status: Acute Code(s): R60.0 - LOCALIZED EDEMA SNOMED Code(s): 650069761 (4) Liver cirrhosis Current Visit: No Status: Acute Code(s): K74.60 - UNSPECIFIED CIRRHOSIS OF LIVER SNOMED Code(s): 84651932 (5) Umbilical hernia Current Visit: No Status: Acute Code(s): K42.9 - UMBILICAL HERNIA WITHOUT OBSTRUCTION OR GANGRENE SNOMED Code(s): 783465263 Plan: Continue diuresis. Appreciate GI input. Check CBC and CMP in a.m. Case management consulted for possible hospice Otherwise, intervention radiology for continued paracentesis?
[2022-07-19] MEDS: PIPERACILLIN-TAZOBACTAM 3.375 GM in SODIUM CHLORIDE 0.9% 100 ML IVPB SCH ×3 (08:45→23:06)
[2022-07-19] MEDS: FUROSEMIDE 10 MG/ML 4 ML VIAL IV SCH ×2 (08:49→23:03)
[2022-07-19] MEDS: SPIRONOLACTONE 25 MG TAB PO SCH (08:49)
[2022-07-19] MEDS: SODIUM CHLORIDE 0.9% 1,000 ML IV SCH (08:56)
[2022-07-19] MEDS ORDERED: ALBUMIN HUMAN 25% 50 ML in EMPTY BAG 1 BAG IVPB ONE (14:44)
--- NOTE | 2022-07-19 15:46 | US ---
EXAMINATION TYPE: US paracentesis abd w/image DATE OF EXAM: 07/19/2022 COMPARISON: NONE HISTORY: Ascites. PROCEDURE: Maximal barrier technique was utilized. The skin overlying a suitable pocket of fluid was localized with ultrasound and the overlying skin was prepped and draped. Ultrasound was utilized with sterile technique. Lidocaine was used for local anesthesia and a skin bernard made with a scalpel. Catheter was advanced under direct ultrasound guidance into a suitable pocket of fluid and approximately 5.9 liter s of ascites fluid were removed. Catheter was withdrawn and hemostasis achieved. There is no immedi ate complication; the patient is discharged in stable condition. IMPRESSION: STATUS POST ULTRASOUND GUIDED PARACENTESIS FOR PALLIATION OF ASCITES. THIS PROCEDURE WA S PERFORMED BY THE UNDERSIGNED.
--- NOTE | 2022-07-19 17:16 | P.PN ---
Subjective Progress Note Date: 07/17/22 Principal diagnosis: Leukocytosis and possible sepsis Patient is a 71-year old male with a past medical history difficult for liver failure cirrhosis secondary to chronic hepatitis C presented to hospital with progressive weakness fatigue and did have significant abdominal distention did have elevated white count and lactic acid. On today's evaluation that is 07/17/2022, the patient denies having any fever or any chills, the patient is slightly more awake and alert today he is breathing comfortably on room air no chest pain or shortness of the cough denies signific ant abdominal distention denies any diarrhea Objective - Vital Signs Vital signs: Vital Signs Temp 97.7 F 07/17/22 20:00 Pulse 79 07/17/22 20:00 Resp 16 07/17/22 20:00 BP 104/75 07/17/22 20:00 Pulse Ox 96 07/17/22 20:00 FiO2 Intake & Output 07/17/22 07/17/22 07/18/22 06:59 18:59 06:59 Intake Total 100 Output Total 100 Balance 0 Weight 68.039 kg Intake: Oral 100 Output: Urine 100 Other: Voiding Method Urinal Urinal Diaper Diaper External Catheter External Catheter # Voids 1 # Bowel Movements 1 1 - Exam GENERAL DESCRIPTION: Elderly male lying in bed, no distress. No tachypnea or accessory muscle of respiration use. LUNGS: Unlabored breathing. Decreased breath sound the base HEART: S1, S2, regular rate and rhythm. No loud murmur ABDOMEN: Soft significant distention no tenderness EXTREMITIES: Trace edema feet. - Labs CBC & Chem 7: 07/16/22 06:19 07/16/22 06:19 Labs: Abnormal Lab Results - Last 24 Hours (Table) 07/17/22 07/17/22 07/17/22 Range/Units 00:54 05:21 09:26 Plasma Lactic Acid Gordon 2.4 H* 2.7 H* 3.0 H* (0.7-2.0) mmol/L Microbiology - Last 24 Hours (Table) 07/15/22 11:53 Blood Culture - Preliminary Blood No Growth after 48 hours 07/15/22 11:40 Blood Culture - Preliminary Blood No Growth after 48 hours Assessment and Plan (1) Leukocytosis Current Visit: Yes Status: Acute Code(s): D72.829 - ELEVATED WHITE BLOOD CELL COUNT, UNSPECIFIED SNOMED Code(s): 988184243 Plan: 1patient with a leukocytosis which is likely multifactorial in this patient do have underlying liver cirrhosis and significant ascites with recent paracentesis patient has not developed significant ascites again and would benefit from a diagnostic and therapeutic paracentesis with the fluid should be sent for cultures. 2patient Seem to have some clinical improvement and will continue with Zosyn and monitor clinical course closely Time with Patient: Less than 30
--- NOTE | 2022-07-19 17:18 | P.PN ---
Subjective Progress Note Date: 07/18/22 Principal diagnosis: Leukocytosis and possible sepsis Patient is a 71-year old male with a past medical history difficult for liver failure cirrhosis secondary to chronic hepatitis C presented to hospital with progressive weakness fatigue and did have significant abdominal distention did have elevated white count and lactic acid. On today's evaluation that is 07/18/2022,The patient remains to be afebrile, the patient is breathing comfortably on room air patient denies having any chest pain no cough, still has significant abdominal distention no nausea no vomiting or diarrhea Objective - Vital Signs Vital signs: Vital Signs Temp 97.8 F 07/18/22 11:30 Pulse 62 07/18/22 11:30 Resp 16 07/18/22 11:30 BP 103/60 07/18/22 11:30 Pulse Ox 91 L 07/18/22 11:30 FiO2 Intake & Output 07/17/22 07/18/22 07/18/22 18:59 06:59 18:59 Intake Total 100 Output Total 100 200 Balance 0 -200 Weight 68.039 kg Intake: Oral 100 Output: Urine 100 200 Other: Voiding Method Urinal Urinal Diaper Diaper External Catheter External Catheter # Voids 1 1 # Bowel Movements 1 1 1 - Exam GENERAL DESCRIPTION: Elderly male lying in bed, no distress. No tachypnea or accessory muscle of respiration use. LUNGS: Unlabored breathing. Decreased breath sound the base HEART: S1, S2, regular rate and rhythm. No loud murmur ABDOMEN: Soft significant distention no tenderness EXTREMITIES: Trace edema feet. - Labs CBC & Chem 7: 07/16/22 06:19 07/16/22 06:19 Labs: Abnormal Lab Results - Last 24 Hours (Table) 07/17/22 Range/Units 12:39 Plasma Lactic Acid Gordon 3.2 H* (0.7-2.0) mmol/L Microbiology - Last 24 Hours (Table) 07/15/22 11:53 Blood Culture - Preliminary Blood No Growth after 48 hours 07/15/22 11:40 Blood Culture - Preliminary Blood No Growth after 48 hours Assessment and Plan (1) Leukocytosis Current Visit: Yes Status: Acute Code(s): D72.829 - ELEVATED WHITE BLOOD CELL COUNT, UNSPECIFIED SNOMED Code(s): 149870692 Plan: 1patient with a leukocytosis which is likely multifactorial in this patient do have underlying liver cirrhosis and significant ascites with recent paracentesis patient has not developed significant ascites again and would benefit from a diagnostic and therapeutic paracentesis , Which is scheduled for tomorrow morning we will request for cell count and culture 2patient We will continue with Zosyn while waiting for the work-up to complete blood culture negative so far Time with Patient: Less than 30
[2022-07-20 00:03] LABS: Appearance,BF Slightly Hazy
[2022-07-20] MEDS: MIDODRINE 5 MG TAB PO SCH ×2 (06:32→09:13)
[2022-07-20] MEDS: THIAMINE 100 MG TAB PO SCH ×2 (06:32→09:13)
[2022-07-20 07:38] VITALS: BP 93/61; PULSE 81; RESP 14; TEMP 97.9
[2022-07-20] MEDS: SODIUM CHLORIDE 0.9% 1,000 ML IV SCH (07:43)
[2022-07-20 07:52] LABS: HCT 42.3 % (39.0-53.0); HGB 13.7 gm/dL (13.0-17.5); MCH 31.4 pg (25.0-35.0); MCHC 32.5 g/dL (31.0-37.0); MCV 96.8 fL (80.0-100.0); Mean Platelet Volume 10.4; RBC 4.37 m/uL (4.30-5.90); RDW 14.5 % (11.5-15.5); WBC 16.7 k/uL (3.8-10.6)
--- NOTE | 2022-07-20 08:08 | P.DS ---
Providers Date of admission: 07/15/22 16:14 Attending physician: Kyle Moreau Primary care physician: Kyle Moreau - Discharge Diagnosis(es) (1) Liver failure Current Visit: Yes Status: Acute (2) Ascites of liver Current Visit: No Status: Acute (3) Bilateral lower extremity edema Current Visit: No Status: Acute (4) Liver cirrhosis Current Visit: No Status: Acute (5) Umbilical hernia Current Visit: No Status: Acute Hospital Course: This is a discharge summary 79-year-old white male essentially admitted for alcoholic ascites. He ended up having paracentesis. Because of the prognostic indicators and his overall health, he has decided to go home with hospice. The patient will be discharged in guarded condition with her prognosis given his liver failure. Her centesis was done during this hospitalization and it relieved some of his swelling. Patient Condition at Discharge: Serious Plan - Discharge Summary Discharge Rx Participant: No New Discharge Prescriptions: Continue Spironolactone [Aldactone] 100 mg PO DAILY #120 tab Diltiazem Cd [Cardizem CD] 180 mg PO DAILY #30 cap Furosemide [Lasix] 40 mg PO BID #60 tablet Thiamine [Vitamin B-1] 100 mg PO BID-W/MEALS #60 tab Discharge Medication List Diltiazem Cd [Cardizem CD] 180 mg PO DAILY #30 cap 07/07/22 [Rx] Furosemide [Lasix] 40 mg PO BID #60 tablet 07/07/22 [Rx] Spironolactone [Aldactone] 100 mg PO DAILY #120 tab 07/07/22 [Rx] Thiamine [Vitamin B-1] 100 mg PO BID-W/MEALS #60 tab 07/07/22 [Rx] Follow up Appointment(s)/Referral(s): Kyle Moreau MD [Primary Care Provider] - As Needed Discharge Disposition: HOME WITH HOSPICE
[2022-07-20 08:19] LABS: Albumin 2.7 g/dL (3.5-5.0); Calcium 7.9 mg/dL (8.4-10.2); Total Bilirubin 2.3 mg/dL (0.2-1.3); Total Protein 5.4 g/dL (6.3-8.2)
[2022-07-20] MEDS: FUROSEMIDE 10 MG/ML 4 ML VIAL IV SCH (09:12)
[2022-07-20] MEDS: PIPERACILLIN-TAZOBACTAM 3.375 GM in SODIUM CHLORIDE 0.9% 100 ML IVPB SCH ×2 (09:12→09:13)
[2022-07-20] MEDS: SPIRONOLACTONE 25 MG TAB PO SCH (09:13)
[2022-07-20 10:48] LABS: Platelet Count 88 k/uL (150-450)
== END 2022-07-20 11:20 | disposition hospice, home (50) | DRG 872 ==
LOC: EC 11:08 → 3SCARD 16:14
PROVIDERS: ADMIT Family Medicine; ATTEND Family Medicine
PROC: 0W9G30Z Drainage of Peritoneal Cavity with Drainage Device, Percutaneous Approach (ICD-10-PCS; principal; 2022-07-19)
DX: A41.9 Sepsis, unspecified organism (principal); E87.1 Hypo-osmolality and hyponatremia; R18.8 Other ascites; E46 Unspecified protein-calorie malnutrition; E87.2 Acidosis; K70.40 Alcoholic hepatic failure without coma; K74.60 Unspecified cirrhosis of liver; R54 Age-related physical debility; Z68.27 Body mass index [BMI] 27.0-27.9, adult; B18.2 Chronic viral hepatitis C; K42.9 Umbilical hernia without obstruction or gangrene; H91.10 Presbycusis, unspecified ear; F17.210 Nicotine dependence, cigarettes, uncomplicated; Z79.899 Other long term (current) drug therapy; Z86.61 Personal history of infections of the central nervous system
CPT/HCPCS: 36415; 49083; 70450; 71045; 80048; 80053; 82140; 83605; 83735; 84145; 85025; 85027; 85610; 85730; 86140; 87040; 87070; 87075; 87205; 89050; 93005; 96365; 96366; 96367; 99285